=== PATIENT | female | born 1995 | race Caucasian/White ===

== ENCOUNTER 2022-06-05 12:24 | Emergency (ER) | payer SELFPAY ==
--- NOTE | ~2022-06-05 | XR_ITS ---
EXAMINATION: XR lumbar spine min 4V DATE: 06/05/2022 15:46 INDICATION: Left back pain. TECHNIQUE: 5 views of lumbar spine were obtained. COMPARISON: None. FINDINGS: There is 10 degrees levoscoliosis of lumbar spine. Vertebral body heights are normal. Inter vertebral disc heights are normal. The facet joints are unremarkable. IMPRESSION: 1. Lumbar levoscoliosis. Reviewed, dictated and finalized at location A. IMPRESSION: 1. Lumbar levoscoliosis.
[2022-06-05 12:59] VITALS: BP 177/100; PULSE 85; RESP 18; TEMP 36.6; O2SAT 100
[2022-06-05 14:12] LABS: Appearance Urine Clear (Clear); Bilirubin Urine Negative (Negative); Blood Urine 2+ (Negative); Color Urine Yellow (Yellow); Glucose Urine UA Negative (Negative); Ketones Urine Negative (Negative); Leukocyte Esterase Ur Trace LEU/UL (Negative); Nitrate Urine Negative (Negative); Protein Urine 2+ mg/dL (Negative); Specific Grav Ur 1.025 (1.001-1.035); Urobilinogen Urine 0.2 mg/dL (<2.0); pH Urine 6.5 (5.0-9.0)
[2022-06-05 14:18] LABS: Bacteria Urine Trace /hpf; Mucus Urine Rare /lpf; Squamous Epithelial Cell Urine Few /hpf (Few)
[2022-06-05 14:21] LABS: Add Urine Microscopic? YES
[2022-06-05 15:47] VITALS: PULSE 81; RESP 14; O2SAT 99
[2022-06-05 15:50] VITALS: BP 168/118
--- NOTE | 2022-06-05 16:40 | ED.BACK ---
HPI - Back Pain/Injury General Chief Complaint: Back Pain/Injury Stated Complaint: back pain x 2 weeks Time Seen by Provider: 06/05/22 15:12 Source: patient Mode of arrival: ambulatory Limitations: no limitations History of Present Illness HPI Narrative: 26-year-old otherwise healthy here with complaints of low back pain for 2 weeks. She denies any trauma. No history of bladder or bowel incontinence. She states that she has a constant pain. MD elicited complaint: back pain Onset (ago): week(s) (2) Timing: constant Severity: moderate Similar Symptoms Previously: No Quality: aching Location: lumbar spine Radiation: none Exacerbating factors: none Associated symptoms: denies other symptoms Related Data Allergies Allergy/AdvReac Type Severity Reaction Status Date / Time NSAIDS (Non-Steroidal AdvReac Unknown has Verified 06/05/22 15:48 Anti-Inflamma polycystic kidneys, told not to take Review of Systems Review of Systems: All systems reviewed & are unremarkable except as noted in HPI and below Constitutional: Constitutional: Reports no additional constitutional complaints Eyes: Eyes: Reports no additional eye complaints ENT: Reports system reviewed and no additional complaints, except as documented Cardiovascular: Cardiovascular: Reports no additional cardiovascular complaints Respiratory: Respiratory: Reports no additional respiratory complaints Gastrointestinal: Gastrointestinal: Reports no additional gastrointestinal complaints Musculoskeletal: Musculoskeletal: Reports as per HPI Neurologic: Reports system reviewed and no additional complaints, except as documented Exam Narrative: GENERAL: Well-appearing, well-nourished, and in no acute distress. HEAD: Normocephalic, atraumatic. EYES: PERRLA and EOMI NECK: Supple. CHEST: Clear to auscultation. No respiratory distress. HEART: Regular rate and rhythm. No murmur heard. Normal peripheral pulses. ABDOMEN: Soft, nontender, nondistended, normal active bowel sounds. SLR negative on both sides EXTREMITIES: Normal range of motion. No edema. SKIN: Warm, dry, no rash. NEURO: No focal deficits. Alert and oriented x3. PSYCH: Normal mood and affect. Course Vital Signs Vital signs: Vital Signs Temperature 36.6 C 06/05/22 12:59 Pulse Rate 85 06/05/22 12:59 Respiratory Rate 18 06/05/22 12:59 Blood Pressure 177/100 H 06/05/22 12:59 Pulse Oximetry 100 06/05/22 12:59 Oxygen Delivery Room Air 06/05/22 12:59 Temperature 36.6 C 06/05/22 12:59 Pulse Rate 81 06/05/22 15:47 Respiratory Rate 14 06/05/22 15:47 Blood Pressure 168/118 H 06/05/22 15:50 Pulse Oximetry 99 06/05/22 15:47 Oxygen Delivery Room Air 06/05/22 12:59 MDM - Back Pain/Injury MDM Narrative Medical decision making narrative: DJD, muscle strain Lab Data Labs: Lab Results 06/05/22 Range/Units 13:51 Urine Color Yellow (Yellow) Urine Appearance Clear (Clear) Urine pH 6.5 (5.0-9.0) Ur Specific [place] 1.025 (1.001-1.035) Urine Protein 2+ H (Negative) mg/dL Urine Glucose (UA) Negative (Negative) mg/dL Urine Ketones Negative (Negative) mg/dL Ur Blood (Man) 2+ H (Negative) Urine Nitrate Negative (Negative) Urine Bilirubin Negative (Negative) Urine Urobilinogen 0.2 (<2.0) mg/dL Leukocyte Esterase Rfl Trace H (Negative) VANDANA/UL Urine RBC 11-20 H (0-2) /hpf Urine WBC 4-6 H /hpf Ur Squamous Epith Cells Few (Few) /hpf Urine Bacteria Trace /hpf Urine Mucus Rare /lpf UCG Bedside Result Negative Reference Range: Negative Discharge Plan Discharge Clinical Impression: Strain of lumbar region Patient Disposition: Home, Self-Care Condition: Stable Instructions: Antibiotic Form Additional Instructions: Take pain medication as prescribed follow-up with your doctor Prescriptions: New tramadol [Ul
== END 2022-06-05 17:10 | disposition home or self-care (01) ==
PROVIDERS: Emergency Provider Family Medicine
DX: S39.012A Strain of muscle, fascia and tendon of lower back, initial encounter (principal); X58.XXXA Exposure to other specified factors, initial encounter
CPT/HCPCS: 72110; 81001; 81025; 99283

== ENCOUNTER 2023-02-11 15:29 | Emergency (ER) | payer OTHER, SELFPAY ==
[2023-02-11 15:54] VITALS: BP 156/90; PULSE 82; RESP 15; TEMP 36.8; O2SAT 100
--- NOTE | 2023-02-11 15:57 | ED.URI ---
HPI - URI/Sore Throat General Chief Complaint: Upper Respiratory Infection Stated Complaint: cough Time Seen by Provider: 02/11/23 15:50 History of Present Illness HPI Narrative: 27-year-old female with no medical problems presents to the emergency room for evaluation of a productive cough for 8 days. Cough is associated with PND, sinus congestion, sneezing, rhinorrhea. Patient recently found out that she is 8 weeks . Has been taking Tylenol and Zyrtec for her cough with no improvement of her symptoms. Denies any shortness of breath, wheezing, fever or chest pain. Related Data Allergies Allergy/AdvReac Type Severity Reaction Status Date / Time NSAIDS (Non-Steroidal AdvReac Unknown has Verified 02/11/23 15:57 Anti-Inflamma polycystic kidneys, told not to take Review of Systems Review of Systems: CONSTITUTIONAL: Denies fever, chills, or sweats. EYES: Denies visual changes, redness, or discharge. ENT: Denies rhinorrhea, congestion, sore throat, or otalgia. CARDIOVASCULAR: Denies chest pain, palpitations, or edema. RESPIRATORY: Reports cough GASTROINTESTINAL: Denies abdominal pain, nausea, vomiting, or diarrhea. GENITOURINARY: Denies dysuria or hematuria. SKIN: Denies rash or itching. MUSCULOSKELETAL: Denies back pain, joint pain, or myalgia. NEUROLOGIC: Denies headache, numbness, dizziness, or weakness. PSYCHIATRIC: Denies anxiety or depression. Exam Narrative: GENERAL: Well-appearing, well-nourished, no physical limitations, and in no acute distress. HEAD: Normocephalic, atraumatic. EYES: Conjunctivae normal, PERRLA and EOMI. ENT: External nose normal, Nares clear, no rhinorrhea or epistaxis. Mucous membranes moist. Oropharynx without tonsillar hypertrophy exudate or other lesions. External ears normal, bilateral TMs normal bilaterally NECK: Supple. No adenopathy or masses. CHEST: Clear to auscultation. No respiratory distress. No wheezes rales or rhonchi. HEART: Regular rate and rhythm. No murmur heard. Normal peripheral pulses. EXTREMITIES: Normal range of motion. No edema. No clubbing or cyanosis SKIN: Warm, dry, no rash. No noted wounds NEURO: No focal deficits. Alert and oriented x3. MAEW. CN's II-XI intact bilaterally, normal gait PSYCH: Cooperative. Normal mood and affect. Course Vital Signs Vital signs: Vital Signs Temperature 36.8 C 02/11/23 15:54 Pulse Rate 82 02/11/23 15:54 Respiratory Rate 15 02/11/23 15:54 Blood Pressure 156/90 H 02/11/23 15:54 Pulse Oximetry 100 02/11/23 15:54 Oxygen Delivery Room Air 02/11/23 15:54 Temperature 36.8 C 02/11/23 15:54 Pulse Rate 82 02/11/23 15:54 Respiratory Rate 15 02/11/23 15:54 Blood Pressure 156/90 H 02/11/23 15:54 Pulse Oximetry 100 02/11/23 15:54 Oxygen Delivery Room Air 02/11/23 15:54 MDM - URI/Sore Throat Lab Data Labs: Lab Results 02/11/23 Range/Units 15:53 Influenza A (RT-PCR) Negative (Negative) Influenza B (RT-PCR) Negative (Negative) RSV (RT-PCR) Negative (Negative) SARS-CoV-2 RNA (RT-PCR) Negative (Negative) Discharge Plan Discharge Clinical Impression: Upper respiratory infection, Cough Patient Disposition: Home, Self-Care Condition: Stable Instructions: Antibiotic Form, Acute Cough (ED) Prescriptions: No Action tramadol [Ultram] 50 mg tablet 50 mg PO Q6H PRN (Reason: pain) Qty: 20 0RF Follow-up/Referrals: PHYSICIAN,APPLICATIONS TESTER [Non-Staff] - Time of Disposition: 16:42
[2023-02-11 16:32] LABS: Influenza A QL RT-PCR Negative (Negative); Influenza B QL RT-PCR Negative (Negative); RSV RNA, RT-PCR Negative (Negative); SARS-CoV-2 RNA PCR Negative (Negative)
[2023-02-11 17:03] VITALS: BP 159/96; PULSE 88; RESP 17; O2SAT 100
== END 2023-02-11 17:08 | disposition home or self-care (01) ==
PROVIDERS: Emergency Medicine; Emergency Provider Nurse Practitioner Family
DX: J06.9 Acute upper respiratory infection, unspecified (principal); Z20.822 Contact with and (suspected) exposure to COVID-19
CPT/HCPCS: 87637; 99281; 99282; 99283

== ENCOUNTER → 2023-02-20 11:08 | Outpatient (CLI) | payer OTHER, SELFPAY ==
--- NOTE | ~2023-02-20 | US_ITS ---
Pelvic ultrasound. Clinical History: First trimester , amenorrhea Technique: Realtime transabdominal and transvaginal scanning of the pelvis was performed. Color flow Doppler and Doppler spectral analysis were performed. Findings: The uterus is anteverted, and contains an intrauterine gestation. Left-sided intraforaminal fibroid measures 4.6 cm in diameter. heart rate is 173 bpm. [place]-rump length of 2.4 cm corres ponds to an estimated gestational age of 9 weeks 1 day. The right ovary is not visualized. No significant right ovarian or adnexal mass is seen. The left ovary measures 3.8 x 2.0 x 2.8 cm. No significant left ovarian or adnexal mass is seen. There is no evidence of free fluid in the cul de sac. Impression: Live intrauterine gestation with estimated gestational age of 9 weeks 1 day. heart rate is 173 bpm. Sonographic JONATHAN is 09/24/2023. 4.6 cm uterine fibroid, as above. Reviewed, dictated and finalized at location . Impression: Live intrauterine gestation with estimated gestational age of 9 weeks 1 day. Fe manjit heart rate is 173 bpm. Sonographic JONATHAN is 09/24/2023. 4.6 cm uterine fibroid, as above.
== END ==
PROVIDERS: PCP Obstetrics & Gynecology; Visit Provider Obstetrics & Gynecology
DX: N91.1 Secondary amenorrhea (principal); Z34.91 Encounter for supervision of normal pregnancy, unspecified, first trimester; Z3A.09 9 weeks gestation of pregnancy; D25.9 Leiomyoma of uterus, unspecified
CPT/HCPCS: 76801; 76817

== ENCOUNTER 2025-03-06 03:20 | Observation (INO) | payer OTHER, SELFPAY ==
--- NOTE | ~2025-03-06 | US_ITS ---
EXAMINATION: US abdomen limited DATE: 03/06/2025 07:57 INDICATION: Right upper quadrant abdominal pain TECHNIQUE: Multiple grayscale and Doppler ultrasound images of the abdomen were obtained. COMPARISON: CT dated 03/06/2025 FINDINGS: The pancreatic head and body are normal in appearance. The pancreatic tail is not visualized. Liver has normal echogenicity and contour, with a smooth surface. One similar anechoic hepatic cyst.. No in trahepatic biliary duct dilation suspected. Portal venous flow was seen in the hepatopetal, normal di rection and has normal Doppler waveform. Numerous echogenic and shadowing gallstones in the dependent neck of the gallbladder. Minimal gallbladder wall thickening. Sonographic Nuno sign was reported a s positive by the continuous loft operator.Common bile duct measures 5-6 mm in maximal diameter which is normal. T he visualized proximal inferior vena cava is normal. The visualized mid abdominal aorta appears kim l measuring 1.9 cm in maximal diameter. IMPRESSION: 1. Cholelithiasis with likely acute cholecystitis. Reviewed, dictated and finalized at location A.
--- NOTE | ~2025-03-06 | CT_ITS ---
EXAMINATION: CT abdomen pelvis w con DATE: 03/06/2025 06:24 INDICATION: Right-sided abdominal pain, nausea and vomiting TECHNIQUE: Computed tomography (CT) of the abdomen and pelvis was performed with 100 mL Omnipaque-350 intravenous contrast. Automated exposure control and iterative reconstruction technique were employe d. The dose-length product was 1318.60 mGy-cm. COMPARISON: None FINDINGS: Mild atelectasis due to the dependent left lung base. Heart size is normal. No pericardial or pleural effusion. There are a few hepatic cysts measuring up to 1.4 cm in maximal diameter and numerous bila teral renal cysts measuring up to 3.2 cm in maximal diameter on the right consistent with polycystic kidney disease. Spleen, pancreas and bilateral adrenal glands are normal. There are gallstones in the dependent neck of the gallbladder. There is subtle edematous-appearing gallbladder wall thickening s uspicious for early acute cholecystitis. Bowels including the appendix are normal. Bladder, uterus an d left adnexa are unremarkable. There is a 4.9 cm right adnexal cyst. No free intraperitoneal gas or fluid. No pathologically enlarged abdominal or pelvic lymphadenopathy. Mild S-shaped thoracolumbar sc oliosis with mild spondylosis. IMPRESSION: 1. Cholelithiasis with likely early acute cholecystitis. 2. 4.9 cm right adnexal cyst. 3. Numerous bilateral renal cysts and a few hepatic cysts consistent with autosomal dominant polycyst ic kidney disease. Reviewed, dictated and finalized at location A. IMPRESSION: 1. Cholelithiasis with likely early acute cholecystitis. 2. 4.9 cm right adnexal cyst. 3. Numerous bilateral renal cysts and a few hepatic cysts consistent with autos omal dominant polycystic kidney disease.
[2025-03-06 03:21] VITALS: BP 211/110; PULSE 91; RESP 18; TEMP 36.6; O2SAT 100
--- OUTSIDE RECORDS SUMMARY | 2025-03-06 03:23 | XMS_ITS | Data Portability ---
Author Organization [facility] JUNEHenry Address [address] [place] [address] Assessment No assessment recorded. Plan of Treatment Reminders Order Date Submit Date Provider Last Modified By Organization Details Last Modified Time Details Appointments None recorded. Lab SARS CoV 2 RNA (COVID-19) , QL, technical specialist cytogenetics-PCR, respirator y specimen - [place] , 2019 020 [facility] (Lab), [address] [place], [address], 0 15:45:55 pap, IG + HPV, cervical 2015 016 [facility], [address] [place] [address], [address], [place], [address], 6 20:08:41 bacterial vaginosis + vaginitis panel, vaginal 2015 016 [facility], [address] [place] [address], [address], [place], [address], 6 20:07:48 HSV (1+2) DNA, qual, PCR, unspecifie d specimen 2015 016 [facility], [address] [place] [address], [address], [place], [address], 6 20:07:49 urinalysis , dipstick 2015 016 [email or web address] In-Office Order, Internal Use Only DO Not Attach Compendium DO Not Attach Compendium, Do Not Delete/merge, [id number] 6 17:46:15 test, urine 2015 016 [id number] In-Office Order, Internal Use Only DO Not Attach Compendium DO Not Attach Compendium, Do Not Delete/merge, [id number] 04:29:[address] referral - History of polycystic kidneys, Can she use oral contracept edward pills? 2015 016 JOHN Knutson MD (Nephrology, [address], [address], [place], [address], 10:25:48 Procedures None recorded. Surgeries None recorded. Imaging None recorded. Medication Orders None recorded. Patient TargetsNo targets recorded. Patient Instructions Encounter Date Encounter Id Patient Instructions Last Modified By Organization Details Last Modified Time 08/01/2016 [id number] painful menstrua l cramps: care instructions [email or web address] Not available 08/01/2016 17:04:32 02/20/2020 [id number] Reviewed the following recommendations: -Stay home and separate from others as much as possible. -Monitor your symptoms and seek medical attention for trouble breathing, persistent chest pain, confusion, or bluish lips or face. -Wear a mask if you must be around other people. -Wash your hands often for 20 seconds with soap and water and clean high-touch surfaces daily -You may discontinue home isolation if your symptoms are improving, it has been 7 days since symptoms started, and you have been fever free for at least 3 days. 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 Referring Physician: Yung Love, [employer] AND LOAN COLLECTIONS SUPERVISOR, Encounter Date: 08/01/2016 Results Created Date Observation Date Name Description Value Unit Range Abnormal Flag Note LastModifiedBy Organization Detail LastModifiedTime 08/12/20 16 08/12/2016 pregn milo test, urine HCG negati ve Not Available In-Office Order Internal Use Only DO Not Attach Compendium DO Not Attach Compendium, Do Not Delete/merge, [id number] 08/12/2016 16:54:29 08/01/20 16 08/01/2016 urina lysis , dipst ick Leukocytes Small Not Available In-Offi ce Order Internal Use Only DO Not Attach Compendium DO Not Attach Compendium, Do Not Delete/merge, [id number] 08/01/2016 16:56:39 08/01/20 16 08/01/2016 urina lysis , dipst ick Nitrite negati ve Not Available In-Office Order Internal Use Only DO Not Attach Compendium DO Not Attach Compendium, Do Not Delete/merge, [id number] 08/01/2016 16:56:39 08/01/20 16 08/01/2016 urina lysis , dipst ick Urobilinogen 1 Not Available In-Of fice Order Internal Use Only DO Not Attach Compendium DO Not Attach Compendium, Do Not Delete/merge, [id number] 08/01/2016 16:56:39 08/01/20 16 08/01/2016 urina lysis , dipst ick Protein 100 Not Available In-Office Order Internal Use Only DO Not Attach Compendium DO Not Attach Compendium, Do Not Delete/merge, [id number] 08/01/2016 16:56:39 08/01/20 16 08/01/2016 urina lysis , dipst ick pH 6.5 Not Available In-Office Order Internal Use Only DO Not Attach Compendium DO Not Attach Compendium, Do Not Delete/merge, [id number] 08/01/2016 16:56:39 08/01/20 16 08/01/2016 urina lysis , dipst ick Blood Modera te Not Available In-Office Order Internal Use Only DO Not Attach Compendium DO Not Attach Compendium, Do Not Delete/merge, [id number] 08/01/2016 16:56:39 08/01/20 16 08/01/2016 urina lysis , dipst ick Specific Gabriels 1.030 Not Available In-Off ice Order Internal Use Only DO Not Attach Compendium DO Not Attach Compendium, Do Not Delete/merge, [id number] 08/01/2016 16:56:39 08/01/20 16 08/01/2016 urina lysis , dipst ick Ketone Trace Not Available In-Office Order Internal Use Only DO Not Attach Compendium DO Not Attach Compendium, Do Not Delete/merge, [id number] 08/01/2016 16:56:39 08/01/20 16 08/01/2016 urina lysis , dipst ick Bilirubin Negati ve Not Available In-Office Order Internal Use Only DO Not Attach Compendium DO Not Attach Compendium, Do Not Delete/merge, [id number] 08/01/2016 16:56:39 08/01/20 16 08/01/2016 urina lysis , dipst ick Glucose Negati ve Not Available In-Office Order Internal Use Only DO Not Attach Compendium DO Not Attach Compendium, Do Not Delete/merge, [id number] 08/01/2016 16:56:39 08/01/20 16 08/01/2016 urina lysis , dipst ick Appearance Clear Not Available In-Offi ce Order Internal Use Only DO Not Attach Compendium DO Not Attach Compendium, Do Not Delete/merge, [id number] 08/01/2016 16:56:39 08/01/20 16 08/01/2016 urina lysis , dipst ick Color Yellow Not Available In-Office Order Internal Use Only DO Not Attach Compendium DO Not Attach Compendium, Do Not Delete/merge, [id number] 08/01/2016 16:56:39 08/01/20 16 08/05/2016 pap, IG + HPV, cervi jason diagnosis: COMMEN T NEGAT EDWARD FOR INTRA EPITH ELIAL LESIO N AND MALIG CHEY . CELLU LAR BENZ ES ASSOC IATED WITH INFLA MMATI ON ARE PRESE NT. TRICH OMONA S VAGIN TAMIR IS PRESE NT. THIS SPECI MEN WAS RESCR EENED PART OF OUR QUALI TY CONTR OL PROGR AM. Not Available [facility] ([facility]) [address], [place], [address], 08/05/2016 20:08:41 08/01/20 16 08/05/2016 pap, IG + HPV, cervi jason specimen adequacy: COMMEN T SATIS FACTO RY FOR EVALU ATION . ENDOC ERVIC AL AND/O R SQUAM OUS METAP LASTI C CELLS (ENDO CERVI JASON COMPO NENT) ARE PRESE NT. Not Available [facility] ([facility]) [address] [facility], [place], [address], 08/05/2016 20:08:41 08/01/20 16 08/05/2016 pap, IG + HPV, cervi jason clinician provided ICD10: CHATA Lawler Z01.4 19 Not Available [facility] ([facility]) [address] [facility], [place], [address], 08/05/2016 20:08:41 08/01/20 16 08/05/2016 pap, IG + HPV, cervi jason performed by: CHATA BENNETT , CYTOT ECHNO LOGIS T (ASCP ) Not Available [facility] ([facility]) [address] [facility], [place], [address], 08/05/2016 20:08:41 08/01/20 16 08/05/2016 pap, IG + HPV, cervi jason QC reviewed by: CHATA HOFFMANN, CYTOT ECHNO LOGIS T (ASCP ) Not Available [facility] ([facility]) [address] [facility], [place], [address], 08/05/2016 20:08:41 08/01/20 16 08/05/2016 pap, IG + HPV, cervi jason . . Not Available [facility] ([facility]) [address] [place], [address], 08/05/2016 20:08:41 08/01/20 16 08/05/2016 pap, IG + HPV, cervi jason pathologist provided ICD10: CHATA Lawler R87.5 Not Available [facility] ([facility]) [address] [place], [address], 08/05/2016 20:08:41 08/01/20 16 08/05/2016 pap, IG + HPV, cervi jason note: CHATA Lawler THE PAP SMEAR IS A SCREE SHAYY TEST KACI OLIVEROS TO AID IN THE DETEC TION OF BLANQUITA LIGNA NT AND MALIG NANT CONDI TIONS OF THE UTERI NE CERVI X. IT IS NOT A DIAGN OSTIC PROCE DURE AND SHOUL D NOT BE USED THE SOLE MEANS OF DETEC TING CERVI JASON CANCE R. BOTH FALSE -POSI TIVE AND FALSE -NEGA TIVE REPOR TS DO OCCUR . Not Available [facility] ([facility]) [address] [place], [address], 08/05/2016 20:08:41 08/01/20 16 08/05/2016 pap, IG + HPV, cervi jason test methodology: COMMEN T THIS LIQUI D BASED THINP REP(R ) PAP TEST WAS SCREE ASAD WITH THE USE OF AN IMAGE GUIDE Kamar López Not Available [facility] ([facility]) [address] [place], [address], 08/05/2016 20:08:41 08/01/20 16 08/05/2016 pap, IG + HPV, cervi jason HPV aptima POSITI VE negati ve abnormal THIS TEST DETEC TS FOURT EEN HIGH- RISK HPV TYPES (16/1 8/31/ 33/35 /39/4 5/ 51/52 /56/5 8/59/ 66/68 ) WITHO UT DIFFE RENTI ATION . Not Available [facility] ([facility]) [address] [place], [address], 08/05/2016 20:08:41 08/01/20 16 08/04/2016 bacte rial vagin osis + vagin itis panel , vagin al atopobium vaginae MODERA TE - 1 score Not Available [facility] ([facility]) [address] [place], [address], 08/06/2016 20:07:48 08/01/20 16 08/04/2016 bacte rial vagin osis + vagin itis panel , vagin al bvab 2 LOW - 0 score Not Available [facility] ([facility]) [address] [place], [address], 08/06/2016 20:07:48 08/01/20 16 08/04/2016 bacte rial vagin osis + vagin itis panel , vagin al megasphaera 1 LOW - 0 score CALCU LATE TOTAL SCORE BY MIRIAM Tinsley THE 3 INDIV IDUAL BACTE RIAL VAGIN OSIS (BV) MARKE R SCORE S TOGET HER. TOTAL SCORE IS INTER PRETE D FOLLO WS: TOTAL SCORE 0-1: INDIC ATES THE ABSEN CE OF BV. TOTAL SCORE 2: INDET ERMIN ATE FOR BV. ADDIT IONAL CLINI JASON DATA SHOUL D BE EVALU ATED TO ESTAB PONCE A DIAGN OSIS. TOTAL SCORE 3-6: INDIC ATES THE PRESE NCE OF BV. THIS TEST WAS DEVEL OPED AND ITS PERFO RMANC E GLEN CTERI STICS DETER MINED BY [employer]. IT HAS NOT BEEN CLEAR ED OR APPRO CODY BY THE FOOD AND DRUG ADMIN ISTRA TION. THE FDA HAS DETER MINED THAT SUCH CLEAR ANCE OR APPRO AUSTEN IS NOT NECES CHERYL. Not Available [facility] ([facility]) [address] [place], [address], 08/06/2016 20:07:48 08/01/20 16 08/04/2016 bacte rial vagin osis + vagin itis panel , vagin al conrad albicans, JANEEN NEGATI VE negati ve Not Available [facility] ([facility]) [address] [place], [address], 08/06/2016 20:07:48 08/01/20 16 08/04/2016 bacte rial vagin osis + vagin itis panel , vagin al conrad glabrata, JANEEN NEGATI VE negati ve THIS TEST WAS DEVEL OPED AND ITS PERFO RMANC E GLEN CTERI STICS DETER MINED BY [employer]. IT HAS NOT BEEN CLEAR ED OR APPRO CODY BY THE FOOD AND DRUG ADMIN ISTRA TION. THE FDA HAS DETER MINED THAT SUCH CLEAR ANCE OR APPRO AUSTEN IS NOT NECES CHERYL. Not Available [facility] ([facility]) [address] [place], [address], 08/06/2016 20:07:48 08/01/20 16 08/04/2016 bacte rial vagin osis + vagin itis panel , vagin al trich vag by JANEEN POSITI VE negati ve abnormal Not Available [facility] ([facility]) [address] [facility], [place], [address], 08/06/2016 20:07:48 08/01/20 16 08/04/2016 bacte rial vagin osis + vagin itis panel , vagin al chlamydia trachomatis, JANEEN NEGATI VE negati ve Not Available [facility] ([facility]) [address] [place], [address], 08/06/2016 20:07:48 08/01/20 16 08/04/2016 bacte rial vagin osis + vagin itis panel , vagin al neisseria gonorrhoeae, JANEEN NEGATI VE negati ve Not Available [facility] ([facility]) [address] [place], [address], 08/06/2016 20:07:48 08/01/20 16 08/04/2016 HSV (1+2) DNA, qual, PCR, unspe cifie d speci men hsv 1 JANEEN NEGATI VE negati ve Not Available [facility] ([facility]) [address] [place], [address], 08/06/2016 20:07:49 08/01/20 16 08/06/2016 HSV (1+2) DNA, qual, PCR, unspe cifie d speci men hsv 2 JANEEN NEGATI VE negati ve Not Available [facility] ([facility]) [address] [place], [address], 08/06/2016 20:07:49 02/20/20 20 02/20/2020 SARS CoV 2 RNA (COVI D-19) , QL, technical specialist cytogenetics-P CR, respi rator y speci men sars - cov - 2 PCR NEGATI VE mL Not Available [facility] (Lab) [address] [facility], [place], [address], 02/22/2020 15:45:55 02/20/20 20 02/20/2020 SARS CoV 2 RNA (COVI D-19) , QL, technical specialist cytogenetics-P CR, respi rator y speci men covidcom1 This assay is desig asad to detec t the RdRp and N genes of SARS- CoV-2 using nucle ic acid ampli ficat ion. A negat edward resul t does not precl ude the possi bilit y of 2019- nCoV infec tion since the adequ acy of sampl e colle ction and/o r low viral burde n may resul t in the prese nce of viral nucle ic acids level s below the elena tical sensi tivit y of this test metho d. Not Available [facility] (Lab) [address] [facility], [place], [address], 02/22/2020 15:45:55 02/20/20 20 02/20/2020 SARS CoV 2 RNA (COVI D-19) , QL, technical specialist cytogenetics-P CR, respi rator y speci men covidcom2 Posit edward resul ts are indic ative of the prese nce of SARS- CoV-2 RNA and do not rule out bacte rial infec tion or co-in fecti on with other virus es. Not Available [facility] (Lab) [address] [facility], [place], [address], 02/22/2020 15:45:55 02/20/20 20 02/20/2020 SARS CoV 2 RNA (COVI D-19) , QL, technical specialist cytogenetics-P CR, respi rator y speci men covidcom3 Test resul ts shoul d be used along with other clini jason obser vatio ns, patie nt histo ry, epide miolo gical infor matio n and labor atory data in sole tinsley the diagn osis. Not Available [facility] (Lab) [address] [facility], [place], [address], 02/22/2020 15:45:55 02/20/20 20 02/20/2020 SARS CoV 2 RNA (COVI D-19) , QL, technical specialist cytogenetics-P CR, respi rator y speci men covidcom4 This test has recei cody FDA Emerg ency Use Autho rizat ion and has been verif ied by [facility] . This test is only autho rized for the durat ion of the decla ratio n and the circu mstan emanuel that exist to justi fy the autho rizat ion of the emerg ency use of in vitro diagn ostic tests for the detec tion of SARS- CoV-2 virus and/o r diagn osis of COVID -19 infec tion under secti on 564 (b) (1) of the Act. 11 U.S.C . 360bb b-3 (b) (1), unles s the autho rizat ion is termi nated or revok ed soone r. Not Available [facility] (Lab) [address] [place], [address], 02/22/2020 15:45:55 02/20/20 20 02/20/2020 SARS CoV 2 RNA (COVI D-19) , QL, technical specialist cytogenetics-P CR, respi rator y speci men covidcom5 [facility] is certi fied under CLIA- 88 as quali fied to perfo rm high compl exity testi ng. This testi ng was perfo rmed in the [facility] [place] [address] (CLIA Licen se #[id number], CAP #[id number], AU-ID #[id number]). Not Available [facility] (Lab) [address] [place], [address], 02/22/2020 15:45:55 02/20/20 20 02/20/2020 SARS CoV 2 RNA (COVI D-19) , QL, technical specialist cytogenetics-P CR, respi rator y speci men covidcom6 Facts heet for healt hcare provi ders: https ://ww w.fda .gov/ media /1362 56/do wnloa d Facts heet for veda nts: https ://ww w.fda .gov/ media /1365 57/do wnloa d Not Available [facility] ([facility]) [address], [place], [address], 02/22/2020 15:45:55 Result Notes None recorded. Problems Name Problem SNOMED Code Status Onset Date Resolution Date Notes Provider Name and Address Organization Details Recorded Time Dysmenorrhea 798759908 Active Yung Ivan kearney [facility] 6 17:02:03 Problem Notes None recorded. Procedures Surgical History Date Name Laterality Status Provider Name and Address Organization Details Recorded Time 6 Date of Last Pap Smear completed Marycruz Delgado MA [facility] 08/01/2016 15:58:23 5 Dilation and Curettage completed Marycruz Delgado MA [facility] 08/01/2016 15:59:08 Imaging Results None recorded. Procedure Notes None recorded. Medical Equipment None Reported. Medications Name Sig Start Date Stop Date Status Note LastModified by Organization Details LastModified Time azithromycin 250 mg tablet active Not Available Not Availabl e Not Available hydrocodone 5 mg-acetaminophe n 325 mg tablet active Not Available Not Availa ble Not Available metronidazole 500 mg tablet Take 4 tablets now 2015 active Not Available Not Available Not Avai lable sulfamethoxazol e 800 mg-trimethoprim 160 mg tablet active Not Available Not Availabl e Not Available oxycodone-aceta minophen 5 mg-325 mg tablet active Not Available Not Available Not Available montelukast 10 mg tablet active Not Available Not Available No t Available fluticasone propionate 50 mcg/actuation nasal spray,suspensio n active Not Available Not Available Not Available Vitamins Plus Low Iron 27 mg iron-1 mg tablet active Not Available Not Available Not Available Vitals Date Recorded Body mass index (BMI) Body weight Body height Systolic blood pressure Diastolic blood pressure Provider Name and Address Organization Details Last Updated DateTime 08/01/2016 39.4 kg/m2 673050.5 3828 g 167.64 cm 118 mm[Hg] 90 mm[Hg] Marycruz Delgado MA [facility] 6 16:03:45 Social History Question Answer Notes LastModified by Organizat ion Details LastModified Time Tobacco Smoking Status Never Smoker Marycruz Delgado MA [facility], [place] - [facility] 08/01/2016 16:01:50 Do You Have An Advance Directive? No Information not available 08/01/2016 Is Blood Transfusion Acceptable In An Emergency? Yes Information not available 08/01/2016 What Is Your Level Of Caffeine Consumption? Moderate Information not available 08/01/2016 How Much Tobacco Do You Chew? None Information not available 08/01/2016 What Type Of Diet Are You Following? REGULAR Information not available 08/01/2016 Which Illicit Or Recreational Drugs Have You Used? None Information not available 08/01/2016 Education 12 Information no t available 08/01/2016 Live Alone Or With Others? With Others Information not available 08/01/2016 How Many Children Do You Have? 0 Information not available 08/01/2016 Performs Monthly Self-breast Exam? No Information no t available 08/01/2016 Do You Use Protection During Sex? No Information not available 08/01/2016 What Is Your Relationship Status? Single Information not available 08/01/2016 Seat Belts Used Routinely Yes Information not available 08/01/2016 Are You Sexually Active? Yes Information not available 08/01/2016 General Stress Level Low Information not available 08/01/2016 Do You Use Sunscreen Routinely? No Information not available 08/01/2016 Sex: Unknown Functional Status Question Answer Note LastModified by Organizat ion Details LastModified Time What is your level of alcohol consumption? Occasional Information not available 08/01/2016 Are you currently employed? 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 Occasional Information not available 08/01/2016 Mental Status None recorded. Family History Nothing Reported. Medical History Condition Response Other N High Blood Pressure N Breast Cancer N Lung Disease N Depression N Blood Clots N Breast Problem N Anesthesia Complications N Headaches/Migraines N Anxiety Disorder N Muscle, Joint, or Bone Problems N Polyps N Infertility N Acid Reflux (GERD) N Cancer N Endometriosis N High Cholesterol N Liver Disease N Kidney or Bladder Problems Y Thyroid Problems N GI Problems N Acne N Eating Disorder N Anemia N Ovarian Cancer N Diabetes N Blood Transfusions N Seizures/Epilepsy N Abuse/Domestic Violence N Asthma N Hepatitis N Heart Disease N Pre-Eclampsia N Osteoporosis N Gynecological History Statement/Question Response Abnormal Pap N Flow Moderate STIs/STDs N HPV Vaccine Y Duration of Flow (days) 4 Age at Menarche 8 Current Control Method None Frequency of Cycle (Q days) 28 Sexually Active? Y Menses Monthly Y Date of Last Pap Smear 08/01/2016 Sexual Problems? N LMP Approximate Desired Control Method Unknown Obstetrics History GPAL:G 1 P 0 0 1 0 Type Value Multiple Births 0 Full Term 0 Induced 0 Spontaneous 1 Premature 0 Living 0 Ectopics 0 Total 1 Past Encounters Encounter ID Performer Location Encounter Start Date Encounter Closed Date Diagnosis/Indication Diagnosis SNOMED-CT Code Diagnosis ICD10 Code Diagnosis Note [id number] Yung Love MD [facility] (CREDIT AND LOAN COLLECTIONS SUPERVISOR) [address] [place] [phone] 08/01/2016 15:29:50 08/04/2016 10:03:24 Gynecologic examination 42097395 Z01.419 Dysmenorrhea 205878024 N 94.6 Discussed possible endometrio sis as patient has experience d painful periods since age 8. Considered going on continuous OCP's but concerned about history of polycystic renal disease. Will refer to Nephrologi st for answer to this question as to potential contraindi cations. [id number] MD Bronwyn Solis [address] [place] [address] 02/20/2020 13:22:57 02/21/2020 10:38:44 Exposure to SARS-CoV-2 959296113 Z20.828 Health Concerns Section Related Observation LastModified by Organization Detai ls LastModified Time None Recorded Concern Status LastModified by Organization Details LastModified Time None Recorded Advance Directives Directive N: Payers Encounter Date Sequence Insurance Name Policy Number Policy Bianchi Covered Member ID Bianchi Member ID Guarantor Name 08/01/2016 1 [facility] (MEDICAID HMO) [id number] Jenelle Plummer [id number] Jenelle Plummer 02/20/2020 1 [facility] Jenelle Plummer [id number] Jenelle Plummer Notes Date Note Type Note Provider Name and Address Organization Details Recorded Time 08/01/2016 text/html Presenting for a nnual check up with complaint of persistent dysmennorhea. Marycruz Delgado MA [facility], [facility] 08/12/2016 16:55:11 02/20/2020 text/html COVID ScreeningReported bypatient.Onset/Durati on of fever:no fever Associated Symptoms:no cough; no shortness of breathCOVID-19 SymptomsReported bypatient.COVID-19 Signs and Symptomscough resolved; fever resolved; shortness of breath resolved Contacts and Exposureclose contact with a confirmed or suspected case of COVID-19; close proximity with person with COVID-19 Associated Symptoms:no sputum production; no shortness of breath; no wheezing; no fever; no runny nose; no sore throat; no vomiting; no diarrhea; no body aches; no nausea; no change in mental status; no hypotension; no tachycardia pt's sister recently tested positive, she denies any symptoms DAYANA BREEN NP Attn: Accounting,[address] [place], [address], [facility] 02/20/2020 14:07:37 OBGyn Episode Ob Episode Information Episode Created Date Number of Fetuses Patient Bloodtype Patient rh Status Prepregnancy Weight lbs Domestic Partner Domestic Partner Phone Father Name Implementation Project Coordinator Status 08/01/20 16 1 CLOSED Fetus Data First Name Last Name Admitted to NICU Weight (g) Sex Living Outcome Pediatric Complications Fetus ID Race Codes Race Delivery Type , Spontane ous [id number] Vaginal Louis Calculation Initial Louis Date Initial Exam Date Initial Exam Provider Initial Ultrasound Date Last Menstrual Period Date Ultra Sound Weeks Gestation 0 Eighteen To Twenty Week Louis Update Ultra Sound Date Fundal Height At Umbil Quickening Date Ultra Sound Latest Weeks Gestation Final Louis Confirmed By Final Louis Confirmed Date Final Louis Date Ultra Sound Latest Days Gestation 0 0 Menstrual History Last Menstrual Date Menses Monthly On Bcp Conception Prior Menses Frequency Hcg Plus Date Menarche Onset Age Delivery Information Delivery Date Delivery Type Labor Anesthesia Weeks Gestation Incision Type Labor Labor Length Hrs Delivered By Post Complications Tubal Sterilization Discharge Date Comments 5 Discharge Information Feeding Method Contraceptive Method Maternal HG B and HCT Levels
--- OUTSIDE RECORDS SUMMARY | 2025-03-06 03:23 | XMS_ITS | Clinical Summary ---
Author Organization 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 Gender Identity Not on file Sexual Orientation Not on file Plan of Treatment Health Maintenance Due Date Last Done Comments Hepatitis C Virus (HCV) Screening 1993 TdaP Immunization 1993 Hepatitis B Immunization (1 of 3 - 19+ 3-dose series) 2012 Pap Smear 2014 Cervical Cancer Screening (CCS) 2023 HPV/Cotest 2023 Influenza Immunization (#1) 2024 SARS-COV-2 Immunization ( season) 2024 Respiratory Syncytial Virus (RSV) Immunization (Adult) (1 - 1-dose 75+ series) 2068 Meningococcal Immunization (ACWY) Aged Out No longer eligible based on patient's age to complete this topic Pneumococcal Immunization Combined Aged Out No longer eligible based on patient's age to complete this topic Rotavirus Immunization Aged Out No lo nger eligible based on patient's age to complete this topic
--- OUTSIDE RECORDS SUMMARY | 2025-03-06 03:23 | XMS_ITS | Clinical Summary ---
Author Organization [facility] Address [address] [place] [id number] Care Team Providers Care Housesmith Name Role Phone None, Provider MD Primary Care Provider Unavaila ble Allergies Active Allergy Reactions Criticality Noted Date Comments Nsaids Other (see comment) 12/25/2017 Contraindicated due to kidney issues - polycystic Medications No known medications Active Problems No known active problems Family History Medical History Relation Comments Kidney Disease Brother Diabetes Father Hyperlipidemia Father Hypertension Father Kidney Disease Father Diabetes Maternal Grandfather Hyperlipidemia Maternal Grandmother Hypertension Maternal Grandmother Diabetes Mother Hypertension Mother Pulmonary Embolism Mother Unk reason Hypertension Paternal Grandmother Kidney Disease Paternal Grandmother Kidney Disease Sister Relation Status Comments Brother Alive Father Alive Maternal Grandfather Maternal Grandmother Alive Mother Alive Paternal Grandfather Alive Paternal Grandmother Alive Sister Alive Social History Tobacco Use Types Packs/Day Years Used Date Smoking Tobacco: Never Smokeless Tobacco: Never Tobacco Cessation:Counseling Given: No Alcohol Use Standard Drinks/Week Comments Yes 0 (1 standard drink = 0.6 oz pur e alcohol) rarely Comments No Sex and Gender Information Value Date Recorded Sex Assigned at Not on file 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 Gender Identity Not on file Sexual Orientation Not on file Last Filed Vital Signs Vital Sign Reading Time Taken Comments Blood Pressure 159/106 07/19/2020 4:40 PM CDT Pulse 84 07/19/2020 4:14 PM CDT Temperature 36.3 C (97.4 F) 07/19/2020 4:14 PM CDT Respiratory Rate 16 07/19/2020 4:14 PM CDT Oxygen Saturation 100% 07/19/2020 4:14 PM CDT Inhaled Oxygen Concentration - - Weight 111.1 kg (245 lb) 07/19/2020 4:14 PM CDT Height 167.6 cm (5' 6 ) 07/19/2020 4:14 PM CDT Body Mass Index 39.54 07/19/2020 4:14 PM CDT Plan of Treatment Health Maintenance Due Date Last Done Comments Cervical Cancer Screening Pa p Smear (Age 30 to 64) Every 3 Years 1993 Annual Physical 1996 Hepatitis C 2011 DTaP, Tdap and Td Vaccines ( 1 - Tdap) 2012 Hepatitis B Vaccines (1 of 3 - 19+ 3-dose series) 2012 Cervical Cancer Screening Pa p with HPV Testing (Age 30 to 64) Every 5 Years 2023 Cervical Cancer Screening with HPV 2023 COVID-19 Vaccine (2023-2 5 season) 2024 HPV Vaccines Aged Out No longer eligi ble based on patient's age to complete this topic Meningococcal B Vaccine Aged Out No l onger eligible based on patient's age to complete this topic Meningococcal Vaccine Aged Out No alfreda erin eligible based on patient's age to complete this topic Pneumococcal Vaccine: Pediat rics (0 to 5 Years) and At-Risk Patients (6 to 49 Years) Aged Out No longer eligible b ased on patient's age to complete this topic RSV Immunizations Under 20 Months Aged Out No longer eligible based on patient's age to complete this topic Insurance [facility] Care Teams Housesmith Relationship Specialty Start Date End Date None, Provider, PCP - General 09/25/18
--- OUTSIDE RECORDS SUMMARY | 2025-03-06 03:23 | XMS_ITS | Clinical Summary ---
Author Organization [facility] [employer] Address [address] [place] [address] Care Team Providers Care Screw Down Name Role Phone Unavailable Primary Care Provider Unavailabl e Source Comments [facility],non-owned Affiliates and Associated Physician Practices is amultiple site organization consisting of ambulatory clinics and hospital sitesin [place], [place], [place] and [place]. This disclosure is being madepursuant to the Care Everywhere program and may not contain all information available regarding this patient. Last updated 18.[facility] [employer] [employer] Allergies Active Allergy Reactions Criticality Noted Date Comments Nsaids Other 03/06/2014 Polycystic kidney disease Contraindicated due to kidney issues - polycystic Medications * Be aware that medications may not be up to date on this document. Alwaysverify current medications with the patient. montelukast (Singulair) 10 MG tablet Active fluticasone propionate (Flonase) 50 MCG/ACT nasal spray Active acetaminophen (Tylenol) 500 MG capsule Take 2 (two) capsules by mouth every 6 hours 50 capsule 1 3 Active Additional Information Patient not taking.Reported on 11/27/2023 labetalol (Normodyne; Trandate) 200 MG tablet Take 2 (two) tablets by mouth 3 times daily 180 tablet 1 3 Active losartan (Cozaar) 50 MG tablet Take 2 (two) tablets by mouth once daily 180 tablet 3 4 Active NIFEdipine CR 24hr (Adalat CC) 60 MG tablet Take 1 (one) tablet by mouth 2 times daily 120 tablet 3 4 Active vitamin D3 (Cholecalcifero l) 25 MCG (1000 UNITS) tablet Take 2 (two) tablets by mouth once daily 180 tablet 3 4 Active ferrous sulfate 325 (65 FE) MG tablet Take 1 (one) tablet by mouth once daily 90 tablet 3 4 Active Active Problems Patient Care Coordination No te Formatting of this note migh t be different from the original. [employer] form completed. Diapers given. 06/30/2023; 07/28/23, 09/24/23pp (refused) Problem Noted Date Diagnosed Date Preeclampsia, third trimester 08/02/2023 Secondary hypertension 06/29/2023 Hepatitis C antibody test positive 03/12/2023 Supervision of high-risk 03/10/2023 ADPKD (autosomal dominant polycystic kidney dise ase) 06/10/2011 Chronic Hypertension 06/10/2011 Resolved Problems Problem Noted Date Diagnosed Date Resolved Date Class II Obesity affecting 06/10/2011 08/12/2023 Immunizations Immunization Administration Dates Next Due DTAP, HISTORIC VACCINE 03/02/1999,1995,03/27/1994,1993,1993 HEP A PED/ADULT VACCINE 09/29/2007 HEP A PEDS 2 DOSE 08/18/2005 HEP B VACCINE 12/31/1995,03/27/1994,1993 HIB VACCINE 12/31/1995, 4,01/30/1994,1993 Human Papilloma Virus Bivale nt Vaccine 09/29/2007 Human Papilloma Virus Marybeth valent Vaccine 08/02/2010 INFLUENZA VACCINE 08/02/2010,09/29/2007,08/18/20 05 MMR 08/09/2023(Deferred: - rubella i mmune) MMR VACCINE 08/03/1999,03/02/1999,12/25/1994 PNEUMOCOCCAL PCV7 CONJ, PEDS 09/29/2007 POLIO,HISTORIC VACCINE 03/02/1999,1993,01/30/1994,1993 TDAP (7yrs+) 06/30/2023 TDAP, HISTORIC VACCINE 05/29/2008 VARICELLA 08/02/2010 Family History Medical History Relation Name Comments CAD (Coronary Artery Disease) Father Hypertension Father Renal Disease Father Blood Clots Mother Hypertension Mother Renal Disease Paternal Grandmother Relation Name Status Comments Father Mother Paternal Grandmother Social History Tobacco Use Types Packs/Day Years Used Date Smoking Tobacco: Never Tobacco Cessation:Counseling Given: Not Answered Alcohol Use Standard Drinks/Week Comments Never 0 (1 standard drink = 0.6 oz pur e alcohol) Overall Financial Resource Strain (CARDIA) Answe r Date Recorded How hard is it for you to pa y for the very basics like food, housing, medical care, and heating? Not hard at all 09/24/2023 [facility] - Occupational Stress Questionnaire Answer Date Recorded Do you feel stress - tense, restless, nervous, or anxious, or unable to sleep at night because your mind is troubled all the time - these days? Only a little 09/24/2023 Hunger Vital Sign Answer Date Recorded Within the past 12 months, y ou worried that your food would run out before you got the money to buy more. Never true 09/24/20 23 Within the past 12 months, t he food you bought just didn't last and you didn't have money to get more. Never true 09/24/2023 PRAPARE - Transportation Answer Date Re corded In the past 12 months, has l ack of transportation kept you from medical appointments or from getting medications? No 04/2023 In the past 12 months, has l ack of transportation kept you from meetings, work, or from getting things needed for daily living? No 09/24/2023 Housing Stability Vital Sign Answer Manuel e Recorded In the last 12 months, was t here a time when you were not able to pay the mortgage or rent on time? No 09/24/2023 In the last 12 months, how many places have you lived? 1 09/24/2023 In the last 12 months, was t here a time when you did not have a steady place to sleep or slept in a penitentiary (including now)? No 09/24/2023 [place] Depression Scale Answer Date Recorded [place] Depression Scale Total 4 09/24/2023 The thought of harming myself has occurred to me . 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 Gender Identity Not on file Sexual Orientation Not on file Last Filed Vital Signs Vital Sign Reading Time Taken Comments Blood Pressure 146/99 11/27/2023 2:01 PM BRANCH ACCOUNT EXECUTIVE Pulse 80 11/27/2023 2:01 PM BRANCH ACCOUNT EXECUTIVE Temperature 36.8 C (98.2 F) 11/27/2023 2:01 PM BRANCH ACCOUNT EXECUTIVE Respiratory Rate 18 08/12/2023 11:05 AM CDT Oxygen Saturation 100% 11/27/2023 2:01 PM BRANCH ACCOUNT EXECUTIVE Inhaled Oxygen Concentration - - Weight 108.4 kg (239 lb) 11/27/2023 2:01 PM BRANCH ACCOUNT EXECUTIVE Height 167.6 cm (5' 6 ) 08/12/2023 6:55 AM CDT Body Mass Index 38.58 08/12/2023 6:55 AM CDT Plan of Treatment Health Maintenance Due Date Last Done Comments COVID-19 VACCINE ( season) 2024 06/16/2021, 05/19/2021 DEPRESSION SCREENING 10/19/2024 INFLUENZA VACCINE (Season Ended) 2025 08/02/2010, 09/29/2007, 08/18/2005 PAP SMEAR 06/02/2026 06/02/2023 DTAP/TDAP/TD VACCINES (8 - Td or Tdap) 06/30/2033 06/30/2023, 05/29/2008, 03/02/1999, Additional history exists ZOSTER VACCINE (1 of 2) 2043 HEPATITIS B VACCINE Completed 12/31/1995, 03/27/1994, 1993 HIB VACCINE Completed 12/31/1995, 06/1994, 01/30/1994, Additional history exists PNEUMOCOCCAL VACCINE Aged Out 09/29/2007 No long er eligible based on patient's age to complete this topic HPV VACCINE Completed 08/02/2010, 09/29/2007 HIV SCREENING Completed 06/30/2023, 03/10/2023 HEPATITIS C SCREENING Completed 08/11/2023 , 08/11/2023, 06/29/2023, Additional history exists MENINGOCOCCAL (Group B) VACCINE SHARED DECISION-MAKING Aged Out No longer eligible based on patient's age to complete this topic MENINGOCOCCAL GROUPS A/C/Y/W VACCINE Aged Out No longer eligible based on patient's age to complete this topic Goals Goal Patient Goal Type Associated Problems Recent Progress Patient-Stated? Author Medication Management General No Nevin Hand, RN Note: Expected end date: ongoing Interventions: Take all medications as prescribed Let your doctor know right away about any changes in your medications Make sure to request a refill of your medication at least one week prior to your last dose Medication Management General No Nevin Hand RN Note: Expected end date: ongoing Interventions: Take all medications as prescribed Let your doctor know right away about any changes in your medications Make sure to request a refill of your medication at least one week prior to your last dose Procedures Procedure Name Priority Date/Time Associated Diagnosis Comments HEPATITIS SCREEN ACUTE Routine 08/11/2023 11:09 AM CDT HIV-1 HIV-2 ANTIBODY + HIV P24 AG PANEL Routine 06/30/2023 1:54 PM CDT Supervision of high risk in second trimester PAP IG LB RFLX HPV APTIMA ASCU Routine 06/02/2023 2:00 PM CDT Cervical cancer screening from Last 3 Months or Most Recently Relevant to Health Maintenance Results * (ABNORMAL) HEPATITIS SCREEN ACUTE (08/11/2023 11:09 AM CDT) HAV Antibody IgM Non Reactive Non Reactive 08/11/2023 12:25 PM CDT [facility] HBsAg Non Reactive Non Reactive 08/11/2023 12:25 PM CDT [facility] HBc Antibody IgM Non Reactive Non Reactive 08/11/2023 12:25 PM CDT [facility] HCV Antibody Screen REACTIVE(A) Non Reactive 08/11/2023 12:25 PM CDT [facility] Blood BLOOD SPECIMEN / Unknown Lab Venipuncture / Unknown 08/11/2023 11:09 AM CDT 08/11/2023 11:32 AM CDT Narrative [facility] - 08/11/2023 12:25 PM CDT A reactive result is consistent with current HCV infection or past HCV infection that has been resolved. Reflex testing to Hepatitis C Virus RNA Quantitative, Real Time PCR will be performed. See separate report. us Aldo Cabrera MD LAB - CHEMISTRY ORDERA BLES Final Result Performing Organization Address City/[facility]/ZIP Co de Phone Number [facility] [address] [place] [address] * HIV-1 HIV-2 ANTIBODY + HIV P24 AG PANEL (06/30/2023 1:54 PM CDT) HIV1/2 Ab + P24 Ag Non Reactive Non Reactive 06/30/2023 3:32 PM CDT [facility] Blood BLOOD SPECIMEN / Unknown Venipuncture / Unknown 06/30/2023 1:54 PM CDT 06/30/2023 2:07 PM CDT Narrative [facility] - 06/30/2023 3:32 PM CDT No Laboratory evidence of HIV infection. us Melecio Summers MD LAB - CHEMISTRY ORDERABLES Karen l Result Performing Organization Address [facility] Co de Phone Number [facility] [address] [place] [address] * PAP IG LB RFLX HPV APTIMA ASCU (06/02/2023 2:00 PM CDT) Diagnosis Comment 06/08/2023 6:07 AM CDT [facility] ([facility]) Comment: NEGATIVE FOR INTRAEPITHELIAL LESION OR MALIGNANCY. THIS SPECIMEN WAS RESCREENED PART OF OUR BUNDLER PROGRAM. Specimen Adequacy Comment 023 6:07 AM CDT [facility] ([facility]) Comment:Satisfactory for hank luation. No endocervical component is identified. Performed by Comment 06/08/2023 6:07 AM CDT [facility] ([facility]) Comment:Ashley Ricketts, Cytotech nologist ([facility]) QC Reviewed by Comment 06/08/2023 6:07 AM CDT [facility] ([facility]) Comment:Tomi Ceballos, Cyt otechnologist ([facility]) Comment . 06/08/2023 6:07 AM CDT [facility] ([facility]) Note Comment 06/08/2023 6:07 AM CDT [facility] ([facility]) Comment: The Pap smear is a screening test designed to aid in the detection of premalignant and malignant conditions of the uterine cervix. It is not a diagnostic procedure and should not be used as the sole means of detecting cervical cancer. Both false-positive and false-negative reports do occur. [facility]GLBP CPT Code Automation Comment 06/08/2023 6:07 AM CDT [facility] ([facility]) Comment: This liquid based ThinPrep(R) pap test was screened with the use of an image guided system. Note Comment 06/08/2023 6:07 AM CDT [facility] ([facility]) Comment: The HPV DNA reflex criteria were not met with this specimen result therefore, no HPV testing was performed. Pathology/Cytolo gy PART OF UTERINE CERVIX / Unknown Collection / Unknown 06/02/2023 2:00 PM CDT 06/02/2023 2:07 PM CDT Narrative [facility] ([facility]) - 06/08/2023 6:07 AM CDT Performed at: - [address] [id number] On Air Director: Sushma Joseph MD, Phone: [phone] Performed at: 02 - [address] [id number] On Air Director: Grace Melgar MD, Phone: [phone] Specimen Comment: No. of containers..01 ThinPrep Vial Melecio Summers MD LAB - PATHOLOGY/CYTOLOGY ORDERA BLES Final Result Performing Organization Address City/State/[facility] Co de Phone Number [facility] ([facility]) [address] [place] [address] from Last 3 Months or Most Recently Relevant to Health Maintenance Insurance [facility] Advance Directives * Full Code (Latest Code Status on File) Date Activated Date Inactivated Comments 08/06/2023 1:54 PM 08/12/2023 3:52 PM * Full Code Date Activated Date Inactivated Comments 07/29/2023 11:42 AM 08/06/2023 1:54 PM
[2025-03-06 04:47] LABS: Basophils Absolute Auto 0.1 K/mm3 (0.0-0.1); Basophils Percent Auto 0.5 % (0.2-1.2); Eosinophils Percent Auto 0.3 % (0-4.4); Hematocrit 38.6 % (37.0-47.0); Hemoglobin 12.7 g/dL (12.0-15.0); Immature Granulocyte Absolute 0.03 K/mm3 (0.00-0.031); Immature Granulocyte Percent A 0.3 % (0-0.5); Lymphocytes Absolute Auto 1.33 K/mm3 (0.9-3.2); Lymphocytes Percent Auto 12.9 % (18.3-44.2); Mean Corpuscular HGB Conc 32.9 g/dl (32-36); Mean Corpuscular Hemoglobin 26.8 pg (26-34); Mean Corpuscular Volume 81.4 fl (80-100); Mean Platelet Volume 9.8 fl (7.4-10.4); Monocytes Absolute Auto 0.4 K/mm3 (0.1-0.6); Monocytes Percent Auto 3.4 % (2.6-8.5); Neutrophils Absolute Auto 8.5 K/mm3 (1.3-6.7); Neutrophils Percent Auto 82.6 % (45.5-73.1); Platelet Count Result 406 k/mm3 (150-375); Red Blood Count 4.74 M/mm3 (4.2-5.4); Red Cell Distribution Width 13.2 % (11.5-14.5); White Blood Count 10.3 K/mm3 (4.5-10.0)
[2025-03-06 05:03] LABS: Alanine Aminotransferase 75 U/L (6-35); Albumin Level 4.2 g/dL (3.5-5.1); Alkaline Phosphatase 73 U/L (38-126); Anion Gap 9 mmol/L (4-12); Aspartate Amino Transferase 51 U/L (14-36); Bilirubin,Total 0.6 mg/dL (0.2-1.3); Blood Urea Nitrogen 9 mg/dL (7-17); Calcium 8.7 mg/dL (8.4-10.2); Carbon Dioxide 26 mmol/L (22-30); Chloride 102 mmol/L (98-107); Estimated CRCL calculation 147 ml/min; Estimated Glomerular Filt Rate > 60; Glucose 127 mg/dL (65-110); Lipase 52 U/L (23-300); Potassium 3.4 mmol/L (3.4-5.0); Sodium 137 mmol/L (137-145)
--- OUTSIDE RECORDS SUMMARY | 2025-03-06 05:10 | XMS_ITS | Clinical Summary ---
Author Organization [facility] Address [address] [place] [address] Care Team Providers Care Skidder Lever Operator Name Role Phone Unavailable Primary Care Provider Unavailabl e Source Comments [facility],non-owned Affiliates and Associated Physician Practices is amultiple site organization consisting of ambulatory clinics and hospital sitesin [place], [place], [place] and [place]. This disclosure is being madepursuant to the Care Everywhere program and may not contain all information available regarding this patient. Last updated 18.[facility] Allergies Active Allergy Reactions Criticality Noted Date [...] migh t be different from the original. [employer] form completed. Diapers given. 06/30/2023; [...] and heating? Not hard at all 09/24/2023 [facility] - Occupational Stress [...] place to sleep or slept in a alf (including now)? No 09/24/2023 [place] Depression Scale Answer Date Recorded [place] Depression Scale Total 4 09/24/2023 The thought of harming myself has occurred to me . 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 Gender Identity Not on file Sexual Orientation Not on file Last Filed Vital Signs Vital Sign Reading Time Taken Comments Blood Pressure 146/99 11/27/2023 2:01 PM REORDERING CLERK Pulse 80 11/27/2023 2:01 PM REORDERING CLERK Temperature 36.8 C (98.2 F) 11/27/2023 2:01 PM REORDERING CLERK Respiratory Rate 18 08/12/2023 11:05 AM CDT Oxygen Saturation 100% 11/27/2023 2:01 PM REORDERING CLERK Inhaled Oxygen Concentration - - Weight 108.4 kg (239 lb) 11/27/2023 2:01 PM REORDERING CLERK Height 167.6 cm (5' 6 ) 08/12/2023 [...] Non Reactive 08/11/2023 12:25 PM CDT [facility] HBsAg Non Reactive Non Reactive 08/11/2023 12:25 PM CDT [facility] HBc Antibody IgM Non Reactive Non Reactive 08/11/2023 12:25 PM CDT [facility] HCV Antibody Screen REACTIVE(A) Non Reactive 08/11/2023 12:25 PM CDT [facility] Blood BLOOD SPECIMEN / Unknown Lab Venipuncture / Unknown 08/11/2023 11:09 AM CDT 08/11/2023 11:32 AM CDT Narrative [facility] - 08/11/2023 12:25 PM CDT A reactive result is consistent with current HCV infection or past HCV infection that has been resolved. Reflex testing to Hepatitis C Virus RNA Quantitative, Real Time PCR will be performed. See separate report. us Aldo Cabrera MD LAB - CHEMISTRY ORDERA BLES Final Result Performing Organization Address City/[facility]/ZIP Co de Phone Number [facility] [address] [place] [address] * HIV-1 HIV-2 ANTIBODY + HIV P24 AG PANEL (06/30/2023 1:54 PM CDT) HIV1/2 Ab + P24 Ag Non Reactive Non Reactive 06/30/2023 3:32 PM CDT [facility] Blood BLOOD SPECIMEN / Unknown Venipuncture / Unknown 06/30/2023 1:54 PM CDT 06/30/2023 2:07 PM CDT Narrative [facility] - 06/30/2023 3:32 PM CDT No Laboratory evidence of HIV infection. us Melecio Summers MD LAB - CHEMISTRY ORDERABLES Karen l Result Performing Organization Address [facility] Co de Phone Number [facility] [address] [place] [address] * PAP IG LB RFLX HPV APTIMA ASCU (06/02/2023 2:00 PM CDT) Diagnosis Comment 06/08/2023 6:07 AM CDT [facility] ([facility]) Comment: NEGATIVE FOR INTRAEPITHELIAL LESION OR MALIGNANCY. THIS SPECIMEN WAS RESCREENED PART OF OUR SPUD SORTER PROGRAM. Specimen Adequacy Comment 023 6:07 AM CDT [facility] ([facility]) Comment:Satisfactory for hank luation. No endocervical component is identified. Performed by Comment 06/08/2023 6:07 AM CDT [facility] ([facility]) Comment:Ashley Ricketts, Cytotech nologist ([facility]) QC Reviewed by Comment 06/08/2023 6:07 AM CDT [facility] ([facility]) Comment:Tomi Ceballos, Cyt otechnologist ([facility]) Comment . 06/08/2023 6:07 AM CDT [facility] ([facility]) Note Comment 06/08/2023 6:07 AM CDT [facility] ([facility]) Comment: The Pap smear is a screening test designed to aid in the detection of premalignant and malignant conditions of the uterine cervix. It is not a diagnostic procedure and should not be used as the sole means of detecting cervical cancer. Both false-positive and false-negative reports do occur. IGLBP CPT Code Automation Comment 06/08/2023 6:07 AM CDT [facility] ([facility]) Comment: This liquid based ThinPrep(R) pap test was screened with the use of an image guided system. Note Comment 06/08/2023 6:07 AM CDT [facility] ([facility]) Comment: The HPV DNA reflex criteria were not met with this specimen result therefore, no HPV testing was performed. Pathology/Cytolo gy PART OF UTERINE CERVIX / Unknown Collection / Unknown 06/02/2023 2:00 PM CDT 06/02/2023 2:07 PM CDT Narrative [facility] ([facility]) - 06/08/2023 6:07 AM CDT Performed at: - [address] [id number] Tenderizer Tender: Sushma Joseph MD, Phone: [phone] Performed at: 02 - [address] [id number] Tenderizer Tender: Grace Melgar MD, Phone: [phone] Specimen Comment: No. of containers..01 ThinPrep Vial Melecio Summers MD LAB - PATHOLOGY/CYTOLOGY ORDERA BLES Final Result Performing Organization Address City/State/[facility] Co de Phone Number [facility] ([facility]) [address] [place] [address] from Last 3 Months or Most Recently Relevant to Health Maintenance Insurance [facility] Advance Directives * Full Code (Latest Code Status on File) Date Activated Date Inactivated Comments 08/06/2023 1:54 PM 08/12/2023 3:52 PM * Full Code Date Activated Date Inactivated Comments 07/29/2023 11:42 AM 08/06/2023 1:54 PM
--- OUTSIDE RECORDS SUMMARY | 2025-03-06 05:10 | XMS_ITS | Clinical Summary ---
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
--- OUTSIDE RECORDS SUMMARY | 2025-03-06 05:10 | XMS_ITS | Clinical Summary ---
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
[2025-03-06] MEDS: ONDANSETRON INJ 4 MG/2 ML VIAL IV PUSH ×2 (05:13→09:24)
[2025-03-06] MEDS: MORPHINE SULFATE (*CRX) 4 MG/ML INJ IV PUSH (05:13)
[2025-03-06 05:27] LABS: Add Urine Microscopic? YES; Appearance Urine Clear (Clear); Bacteria Urine None Seen /hpf; Bilirubin Urine Negative (Negative); Blood Urine 2+ (Negative); Color Urine Yellow (Yellow); Glucose Urine UA Negative (Negative); Ketones Urine Negative (Negative); Leukocyte Esterase Ur Negative LEU/UL (Negative); Need Manual Microscopic Reviewed; Nitrate Urine Negative (Negative); Non Pathogenic Casts 0-2; Protein Urine 3+ mg/dL (Negative); RBC Urine 21-50 /hpf (0-2); Specific Grav Ur 1.011 (1.001-1.035); Squamous Epithelial Cell Urine Occasional /hpf (Few); Urobilinogen Urine 0.2 mg/dL (<2.0); pH Urine 7.5 (5.0-9.0)
--- NOTE | 2025-03-06 05:28 | ED_ITS ---
HPI - Abdominal Pain General Chief Complaint: Abdominal Pain <Charline Freire MD - Last Filed: 03/06/25 07:14> Stated Complaint: right side abdominal pain, nausea <Charline Freire MD - Last Filed: 03/06/25 07:14> Time Seen by Provider: 03/06/25 04:11 <Charline Freire MD - Last Filed: 03/06/25 07:14> History of Present Illness HPI narrative: Patient presents with nausea vomiting and right upper quadrant pain that has been ongoing intermittently for the past week. Usually resolves on its own but today was much worse so finally came in to get checked. <Charline Freire MD - Last Filed: 03/06/25 07:14> Related Data Allergies/Adverse Reactions: Allergies Allergy/AdvReac Type Severity Reaction Status Date / Time NSAIDS (Non-Steroidal AdvReac Unknown has Verified 03/06/25 03:29 Anti-Inflamma polycystic kidneys, told not to take <Charline Freire MD - Last Filed: 03/06/25 07:14> Review of Systems 2 Review of Systems: All systems reviewed & are unremarkable except as noted in HPI and below <Charline Freire MD - Last Filed: 03/06/25 07:14> Exam 2 Narrative: EXAMINATION OF ORGAN SYSTEMS/BODY AREAS: Constitutional: Vital signs per nursing GENERAL:[No acute distress, non-toxic appearing.] HEAD: Normal with no signs of head trauma. EYES: EOMI, conjunctiva normal ENT: Hearing grossly intact LUNGS: Nonlabored breathing. HEART: [Regular rate and rhythm] ABD: [Soft], slight tenderness to palpation right upper quadrant EXT: Normal range of motion SKIN: [No rashes or lesions.] NEURO: [Alert and oriented x 3. No gross focal sensory or strength deficits.] PSYCH: Normal affect <Charline Freire MD - Last Filed: 03/06/25 07:14> Course Course Emergency Course: Patient signed out to me. Overnight ED physician was concerned for cholecystitis given leukocytosis and mildly elevated LFTs as well as patient's presentation. There was an of suspicion based on this as well as her independent interpretation of CT scan that she already discussed patient with Dr. Bassett who agreed with admitting patient with himself on consultation. Both CT and ultrasound result confirming this diagnosis as well as additional as below. Patient reassessed at bedside approximately 830. She reports the pain is improved. She continues to have intermittent nausea the believes this might be attributed to her having not eaten today. IV antibiotics scheduled are ordered (x2) as is NPO status. Patient discussed with on-call hospitalist Dr. Croft who accepts admission. Patient stable. <Kayce Mackenzie MD - Last Filed: 03/06/25 08:37> Vital Signs Vital signs: Vital Signs Temperature 97.8 F 03/06/25 03:21 Pulse Rate 91 03/06/25 03:21 Respiratory Rate 18 03/06/25 03:21 Blood Pressure 211/110 H 03/06/25 03:21 Pulse Oximetry 100 03/06/25 03:21 Oxygen Delivery Room Air 03/06/25 03:21 Temperature 97.8 F 03/06/25 03:21 Pulse Rate 71 03/06/25 05:30 Respiratory Rate 16 03/06/25 05:30 Blood Pressure 171/102 H 03/06/25 05:30 Pulse Oximetry 98 03/06/25 05:30 Oxygen Delivery Room Air 03/06/25 03:21 <Charline Freire MD - Last Filed: 03/06/25 07:14> Vital Signs Temperature 97.8 F 03/06/25 03:21 Pulse Rate 91 03/06/25 03:21 Respiratory Rate 18 03/06/25 03:21 Blood Pressure 211/110 H 03/06/25 03:21 Pulse Oximetry 100 03/06/25 03:21 Oxygen Delivery Room Air 03/06/25 03:21 Temperature 97.8 F 03/06/25 03:21 Pulse Rate 71 03/06/25 05:30 Respiratory Rate 16 03/06/25 05:30 Blood Pressure 171/102 H 03/06/25 05:30 Pulse Oximetry 98 03/06/25 05:30 Oxygen Delivery Room Air 03/06/25 03:21 <Kayce Mackenzie MD - Last Filed: 03/06/25 08:37> MDM - Abdominal Pain MDM Narrative Medical decision making narrative: Patient presenting with intermittent right upper quadrant pain the almost last week, with nausea vomiting, she does have right upper quadrant tenderness on exam, I am concerned for possible biliary cause, versus possible gastritis, given IV morphine and Zofran and CT obtained. On my independent interpretation of CT, she does appear to have gallbladder wall thickening. Slight white count and transaminitis. I am concerned for possible cholecystitis given these findings, will await official radiology read but I will obtain ultrasound. Discussed with General surgery who recommends ultrasound, if cholecystitis, admit to hospitalist and they will consult Updated patient, who feels much better on repeat evaluation, is agreeable to admission if it will fix her, so we will await ultrasound and final CT read. Signed out to oncoming ER physician. <Charline Freire MD - Last Filed: 03/06/25 07:14> Lab Data Result diagrams: 03/06/25 04:42 03/06/25 04:42 <Charline Freire MD - Last Filed: 03/06/25 07:14> Labs: Lab Results 03/06/25 03/06/25 Range/Units 04:42 05:30 WBC 10.3 H (4.5-10.0) K/mm3 RBC 4.74 (4.2-5.4) M/mm3 Hgb 12.7 (12.0-15.0) g/dL Hct 38.6 (37.0-47.0) % MCV 81.4 (80-100) fl MCH 26.8 (26-34) pg MCHC 32.9 (32-36) g/dl RDW 13.2 (11.5-14.5) % Plt Count 406 H (150-375) k/mm3 MPV 9.8 (7.4-10.4) fl Immature Gran % (Auto) 0.3 (0-0.5) % Neut % (Auto) 82.6 H (45.5-73.1) % Lymph % (Auto) 12.9 L (18.3-44.2) % [place] % (Auto) 3.4 (2.6-8.5) % Eos % (Auto) 0.3 (0-4.4) % Baso % (Auto) 0.5 (0.2-1.2) % Lymph # (Auto) 1.33 (0.9-3.2) K/mm3 [place] # (Auto) 0.4 (0.1-0.6) K/mm3 Eos # (Auto) 0.0 (0-0.3) K/mm3 Baso # (Auto) 0.1 (0.0-0.1) K/mm3 Abs Immat Gran (auto) 0.03 (0.00-0.031) K/mm3 Absolute Neuts (auto) 8.5 H (1.3-6.7) K/mm3 Absolute Nucleated RBC 0.000 (0.0-0.012) K/mm3 Nucleated RBC % 0.0 (0.0-0.2) % Sodium 137 (137-145) mmol/L Potassium 3.4 (3.4-5.0) mmol/L Chloride 102 (98-107) mmol/L Carbon Dioxide 26 (22-30) mmol/L Anion Gap 9 (4-12) mmol/L BUN 9 (7-17) mg/dL Creatinine 0.59 L (0.7-1.0) mg/dL Estim Creat Clear Calc 147 ml/min Estimated GFR > 60 (59 - ) Glucose 127 H (65-110) mg/dL Calcium 8.7 (8.4-10.2) mg/dL Total Bilirubin 0.6 (0.2-1.3) mg/dL AST 51 H (14-36) U/L ALT 75 H (6-35) U/L Alkaline Phosphatase 73 (38-126) U/L Total Protein 8.0 (6.3-8.2) g/dL Albumin 4.2 (3.5-5.1) g/dL Lipase 52 (23-300) U/L Urine Color Yellow (Yellow) Urine Appearance Clear (Clear) Urine pH 7.5 (5.0-9.0) Ur Specific [place] 1.011 (1.001-1.035) Urine Protein 3+ H (Negative) mg/dL Urine Glucose (UA) Negative (Negative) mg/dL Urine Ketones Negative (Negative) mg/dL Ur Blood (Man) 2+ H (Negative) Urine Nitrate Negative (Negative) Urine Bilirubin Negative (Negative) Urine Urobilinogen 0.2 (<2.0) mg/dL Add Ur Microanalysis Reviewed Leukocyte Esterase Rfl Negative (Negative) VANDANA/UL Urine RBC 21-50 H (0-2) /hpf Urine WBC 11-20 H (0-3) /hpf Ur Squamous Epith Cells Occasional (Few) /hpf Urine Bacteria None seen /hpf Urine Casts 0-2 POC Urine HCG, Qual Negative (Negative) <Charline Freire MD - Last Filed: 03/06/25 07:14> Lab Results 03/06/25 03/06/25 Range/Units 04:42 05:30 WBC 10.3 H (4.5-10.0) K/mm3 RBC 4.74 (4.2-5.4) M/mm3 Hgb 12.7 (12.0-15.0) g/dL Hct 38.6 (37.0-47.0) % MCV 81.4 (80-100) fl MCH 26.8 (26-34) pg MCHC 32.9 (32-36) g/dl RDW 13.2 (11.5-14.5) % Plt Count 406 H (150-375) k/mm3 MPV 9.8 (7.4-10.4) fl Immature Gran % (Auto) 0.3 (0-0.5) % Neut % (Auto) 82.6 H (45.5-73.1) % Lymph % (Auto) 12.9 L (18.3-44.2) % [place] % (Auto) 3.4 (2.6-8.5) % Eos % (Auto) 0.3 (0-4.4) % Baso % (Auto) 0.5 (0.2-1.2) % Lymph # (Auto) 1.33 (0.9-3.2) K/mm3 [place] # (Auto) 0.4 (0.1-0.6) K/mm3 Eos # (Auto) 0.0 (0-0.3) K/mm3 Baso # (Auto) 0.1 (0.0-0.1) K/mm3 Abs Immat Gran (auto) 0.03 (0.00-0.031) K/mm3 Absolute Neuts (auto) 8.5 H (1.3-6.7) K/mm3 Absolute Nucleated RBC 0.000 (0.0-0.012) K/mm3 Nucleated RBC % 0.0 (0.0-0.2) % Sodium 137 (137-145) mmol/L Potassium 3.4 (3.4-5.0) mmol/L Chloride 102 (98-107) mmol/L Carbon Dioxide 26 (22-30) mmol/L Anion Gap 9 (4-12) mmol/L BUN 9 (7-17) mg/dL Creatinine 0.59 L (0.7-1.0) mg/dL Estim Creat Clear Calc 147 ml/min Estimated GFR > 60 (59 - ) Glucose 127 H (65-110) mg/dL Calcium 8.7 (8.4-10.2) mg/dL Total Bilirubin 0.6 (0.2-1.3) mg/dL AST 51 H (14-36) U/L ALT 75 H (6-35) U/L Alkaline Phosphatase 73 (38-126) U/L Total Protein 8.0 (6.3-8.2) g/dL Albumin 4.2 (3.5-5.1) g/dL Lipase 52 (23-300) U/L Urine Color Yellow (Yellow) Urine Appearance Clear (Clear) Urine pH 7.5 (5.0-9.0) Ur Specific [place] 1.011 (1.001-1.035) Urine Protein 3+ H (Negative) mg/dL Urine Glucose (UA) Negative (Negative) mg/dL Urine Ketones Negative (Negative) mg/dL Ur Blood (Man) 2+ H (Negative) Urine Nitrate Negative (Negative) Urine Bilirubin Negative (Negative) Urine Urobilinogen 0.2 (<2.0) mg/dL Add Ur Microanalysis Reviewed Leukocyte Esterase Rfl Negative (Negative) VANDANA/UL Urine RBC 21-50 H (0-2) /hpf Urine WBC 11-20 H (0-3) /hpf Ur Squamous Epith Cells Occasional (Few) /hpf Urine Bacteria None seen /hpf Urine Casts 0-2 POC Urine HCG, Qual Negative (Negative) <Kayce Mackenzie MD - Last Filed: 03/06/25 08:37> Imaging Data Radiologist's impression: ITS Impressions Abdomen/Pelvis CT 03/06/25 07:58 IMPRESSION: 1. Cholelithiasis with likely early acute cholecystitis. 2. 4.9 cm right adnexal cyst. 3. Numerous bilateral renal cysts and a few hepatic cysts consistent with autosomal dominant polycystic kidney disease. Abdomen Ultrasound 03/06/25 08:02 IMPRESSION: 1. Cholelithiasis with likely acute cholecystitis. <Charline Freire MD - Last Filed: 03/06/25 07:14> ITS Impressions Abdomen/Pelvis CT 03/06/25 07:58 IMPRESSION: 1. Cholelithiasis with likely early acute cholecystitis. 2. 4.9 cm right adnexal cyst. 3. Numerous bilateral renal cysts and a few hepatic cysts consistent with autosomal dominant polycystic kidney disease. Abdomen Ultrasound 03/06/25 08:02 IMPRESSION: 1. Cholelithiasis with likely acute cholecystitis. <Kayce Mackenzie MD - Last Filed: 03/06/25 08:37> Discharge Plan Discharge Clinical Impression: Abdominal pain, RUQ, Nausea and vomiting, Cholelithiasis with acute cholecystitis, Simple adnexal cyst less than 5 cm in diameter in premenopausal patient, ADPKD (autosomal dominant polycystic kidney disease) <Charline Freire MD - Last Filed: 03/06/25 07:14> Patient Disposition: Still a Patient <Charline Freire MD - Last Filed: 03/06/25 07:14> Condition: Stable <Charline Freire MD - Last Filed: 03/06/25 07:14> Instructions: Antibiotic Form <Charline Freire MD - Last Filed: 03/06/25 07:14> Patient Language: Finnish <Charline Freire MD - Last Filed: 03/06/25 07:14> Prescriptions: No Action tramadol [Ultram] 50 mg tablet 50 mg PO Q6H PRN (Reason: pain) Qty: 20 0RF albuterol sulfate 90 mcg/actuation aerosol powdr breath activated 2 inh inhalation Q6H PRN (Reason: cough) Qty: 1 0RF <Charline Freire MD - Last Filed: 03/06/25 07:14> Follow-up/Referrals: Nupur,Griffin Neal MD [Primary Care Provider] - <Charline Freire MD - Last Filed: 03/06/25 07:14>
[2025-03-06 05:30] VITALS: BP 171/102; PULSE 71; RESP 16; O2SAT 98
[2025-03-06 05:32] LABS: BEDSIDEPREGUCG Negative (Negative)
--- NOTE | 2025-03-06 06:15 | PC.NURSE ---
pt currently at ct.
--- NOTE | 2025-03-06 06:23 | PC.NURSE ---
pt returned from ct and reconnected to monitor.
[2025-03-06] MEDS: CIPROFLOXACIN 400 MG/D5W 200ML 200 ML 200 MG IVPB ×2 (08:35→22:01)
[2025-03-06 08:38] VITALS: BP 161/100; PULSE 73; RESP 18; O2SAT 99
[2025-03-06] MEDS: metroNIDAZOLE 500 MG/ISO 100ML 500 MG/100 ML BAG 100 MG IVPB ×2 (09:01→16:58)
[2025-03-06 09:34] VITALS: BP 162/100; PULSE 87; RESP 18; TEMP 36.6; O2SAT 96
[2025-03-06 09:39] VITALS: BMI 39.5
--- NOTE | 2025-03-06 09:48 | ADMGEN ---
This patient, Jenelle Plummer, was admitted to 3 [facility] Surg Room 304-01. Patient/family oriented to hospital policies and general routines including ID bracelet, bed and alarms, visiting hours, pain management, procedures, bathroom and other care routines, personal items, smoking policy, room service/diet, and visiting hours. Information on how to activate the Rapid Response Team has been discussed. Patient/Family are encouraged to report perceived risks to care and to ask questions if they do not understand what they are told or what they should do. got report from Ruthie
[2025-03-06] MEDS: LACTATED RINGERS 1,000 ML 125 ML IV CONT ×2 (10:04→19:00)
--- NOTE | 2025-03-06 12:15 | P.HP_ITS ---
H&P: HPI History of Present Illness Date/Time: 03/06/25 12:15 Chief Complaint: abd pain Narrative: 29 yo female with PMH with PMH of PCKD and HTN who presented to the ER on account of abd pain which started 2 days ago, RUQ, sharp and 8/10 in intensity, and few occasions of vomiting, but denies any chest pain, SOB, fever, diarrhea or focal deficits. ER eval showed BP 211/110, Labs notable for Cr 0.59. CT AP showed cholelithiasis with possible acute cholecystitis and 4.9cm right adnexal mass, numerous bilateal renal cysts and a few hepatic cysts consitent with ADPCKD. US Abd showed cholelithiasis with likely acute cholecystitis. Gen surgery was consulted prior to admission Review of Systems Review of Systems: All other systems were reviewed and negative except as noted in the HPI above [facility] Past Medical History Medical History (Updated 03/06/25 @ 12:21 by GEOFF Head) Hypertension Polycystic kidney disease Surgical History Surgical History (Updated 03/06/25 @ 12:21 by GEOFF Head) History of D&C Family History Family History (Updated 03/06/25 @ 09:52 by Ashvin Dwyer RN LICPENKamar) Father Kidney polycystic disease Diabetes mellitus Hypertension Atherosclerosis Mother Diabetes mellitus Hypertension Social History Social History Smoking status: Never smoker Alcohol intake: never Substance use: never Substance use type: does not use Do You Feel Safe in your Home?: Yes Lack of Transportation: No Lack of Food: Never True Current Housing: I Have Housing Concerned About Future Housing: No Difficulty Paying Gas/Electric Bills: No Difficulty Paying for Meds: No Currently Unemployed: No Education: Decline to Answer Difficulty w/ Childcare or Family Care: No Spiritual care concerns: No Meds Home Medications and Allergies Home Medications ?Medication ?Instructions ?Recorded ?Confirmed ?Type amlodipine 5 mg tablet 5 mg PO DAILY 03/06/25 03/06/25 History losartan 50 mg tablet 50 mg PO DAILY 03/06/25 03/06/25 History Allergies Allergy/AdvReac Type Severity Reaction Status Date / Time NSAIDS (Non-Steroidal AdvReac Unknown has Verified 03/06/25 10:04 Anti-Inflamma polycystic kidneys, told not to take Vital Signs Vital Signs - 24 hr 03/06/25 03:21 03/06/25 05:30 03/06/25 08:38 Temperature 97.8 F Pulse Rate 91 71 73 Respiratory Rate 18 16 18 Blood Pressure 211/110 H 171/102 H 161/100 H Pulse Oximetry 100 98 99 Oxygen Delivery Room Air 03/06/25 09:34 Temperature 97.8 F Pulse Rate 87 Respiratory Rate 18 Blood Pressure 162/100 H Pulse Oximetry 96 Oxygen Delivery H&P: Results Labs Labs: Short CBC 03/06/25 Range/Units 04:42 WBC 10.3 H (4.5-10.0) K/mm3 Hgb 12.7 (12.0-15.0) g/dL Hct 38.6 (37.0-47.0) % Plt Count 406 H (150-375) k/mm3 BMP 03/06/25 04:42 Sodium 137 Potassium 3.4 Chloride 102 Carbon Dioxide 26 BUN 9 Creatinine 0.59 L Glucose 127 H Calcium 8.7 Liver Function 03/06/25 Range/Units 04:42 Total Bilirubin 0.6 (0.2-1.3) mg/dL AST 51 H (14-36) U/L ALT 75 H (6-35) U/L Alkaline Phosphatase 73 (38-126) U/L Albumin 4.2 (3.5-5.1) g/dL Urine 03/06/25 Range/Units 04:42 Urine Color Yellow (Yellow) Urine Appearance Clear (Clear) Urine pH 7.5 (5.0-9.0) Ur Specific [place] 1.011 (1.001-1.035) Urine Protein 3+ H (Negative) mg/dL Urine Glucose (UA) Negative (Negative) mg/dL Assessment and Plan Assessment and plan (1) Cholelithiasis with acute cholecystitis: Code(s): K80.00 - Calculus of gallbladder with acute cholecystitis without obstruction Status: Acute Plan Cholelithiasis with acute cholecystitis CTAP and US abd reviewed Blood cultures Continue Abx, NPO and IVF Gen surgery consulted HTN with elevated blood pressures Hydralazine 10mg PRN IV ADPCKD continue above care DVT prophylaxis on Sq Lovenox Full code Surrogate decision maker Father, Emmett Plummer Hospitalist [facility] Advance Care Plan I have confirmed that the patient's Advanced Care Plan is present, code status is documented, or surrogate decision maker is listed in patient medical record.: Yes Medication Reconciliation I have utilized all available resources to obtain, update and review the patients current medications (includes all prescriptions, OTC, herbals, cannabis, and nutritional supplements).: Yes
--- NOTE | 2025-03-06 12:16 | P.CONGS_ITS ---
Assessment and Plan Assessment and plan (1) Cholelithiasis with acute cholecystitis: Code(s): K80.00 - Calculus of gallbladder with acute cholecystitis without obstruction Status: Acute Assessment and Plan: Patient presents with an acute onset of RUQ abdominal pain occurring after eating fatty food. CT and ultrasound showed cholelithiasis with early acute cholecystitis. Her abdominal pain has improved since admission and she is only mildly tender on exam. We discussed both nonoperative management with dietary modifications versus surgical management in detail. Continue IV antibiotics for now and will keep her NPO with IV fluids. Further plans for possible surgery will be decided after discussing the case further with Dr. Bassett. (2) Polycystic kidney disease: Code(s): Q61.3 - Polycystic kidney, unspecified Status: Chronic (3) Hypertension: Code(s): I10 - Essential (primary) hypertension Status: Chronic Assessment and Plan: Management per primary team History of Present Illness Consult details Consult date: 03/06/25 Reason for consult: other ( Cholelithiasis with early acute cholecystitis) Requesting physician: Kayce Mackenzie MD Narrative: This is a 29-year-old female with history of hypertension and polycystic kidney disease, who presented to the emergency department with complaints of right upper quadrant abdominal pain. She had an episode about 2 months ago that resolved spontaneously. This was associated with nausea and vomiting. She felt well up until about a week ago. She had another episode of RUQ abdominal pain. Her episodes have happened in the evenings after eating fatty foods. This episode again resolved and she had episodes of pain last 2 nights. Last night, her pain started a few hours after eating fried chicken. This episode was more severe and did not improve with time. This was associated with nausea and vomiting. Due to her severe pain, she came into the ED for evaluation. [place] [address], AST 51, ALT 75, otherwise total bilirubin and alk-phos were normal. Lipase normal. CT scan of the abdomen and pelvis with IV contrast showed cholelithiasis with likely early acute cholecystitis, and a right adnexal cyst and numerous bilateral renal cysts and a few hepatic cysts consistent with autosomal dominant polycystic kidney disease. Right upper quadrant abdominal ultrasound showed cholelithiasis with likely acute cholecystitis. She has been admitted and started on IV metronidazole and ciprofloxacin. Her abdominal pain has improved with analgesics. She denies having any pain at this time. She states that her pain is also associated with heartburn. She is no longer feeling nauseous. No previous abdominal surgeries. Review of Systems 2 Review of Systems: All systems reviewed & are unremarkable except as noted in HPI and below [facility] Past Medical History Medical History Hypertension Polycystic kidney disease Surgical History Surgical History History of D&C Family History Family History Father Kidney polycystic disease Diabetes mellitus Hypertension Atherosclerosis Mother Diabetes mellitus Hypertension Social History Social History Smoking status: Never smoker Alcohol intake: never Substance use: never Substance use type: does not use Do You Feel Safe in your Home?: Yes Lack of Transportation: No Lack of Food: Never True Current Housing: I Have Housing Concerned About Future Housing: No Difficulty Paying Gas/Electric Bills: No Difficulty Paying for Meds: No Currently Unemployed: No Education: Decline to Answer Difficulty w/ Childcare or Family Care: No Spiritual care concerns: No Meds Home Medications and Allergies Home Medications ?Medication ?Instructions ?Recorded ?Confirmed ?Type amlodipine 5 mg tablet 5 mg PO DAILY 03/06/25 03/06/25 History losartan 50 mg tablet 50 mg PO DAILY 03/06/25 03/06/25 History Allergies Allergy/AdvReac Type Severity Reaction Status Date / Time NSAIDS (Non-Steroidal AdvReac Unknown has Verified 03/06/25 10:04 Anti-Inflamma polycystic kidneys, told not to take Vital Signs Vital Signs - 24 hr 03/06/25 03:21 03/06/25 05:30 03/06/25 08:38 Temperature 97.8 F Pulse Rate 91 71 73 Respiratory Rate 18 16 18 Blood Pressure 211/110 H 171/102 H 161/100 H Pulse Oximetry 100 98 99 Oxygen Delivery Room Air 03/06/25 09:34 Temperature 97.8 F Pulse Rate 87 Respiratory Rate 18 Blood Pressure 162/100 H Pulse Oximetry 96 Oxygen Delivery Exam 2 Const: General: comfortable and no acute distress Nutritional Appearance: o verweight Orientation/consciousness: patient oriented x3 HENMT: Head: normocephalic and atraumatic Ears: hearing grossly normal bilaterally Mouth: Yes moist mucous membranes Eyes: General: appearance normal, both eyes and all related structures P upils: Equal, round and reactive pupils present Neck: Neck: normal visual inspection and full ROM Resp: Effort & Inspection: no respiratory distress Auscultation: clear to auscultation bilaterally Cardio: Rate: regular rate Rhythm: regular rhythm Peripheral pulses: P eripheral pulses 2+ throughout GI: Inspection: non-distended and no scars GI Palp: Yes Soft to palpation, Yes Tenderness to palpation present (GI) ( mild epigastric tenderness), No Guarding due to palpation present (GI), Yes No hepatosplenomegaly present and No Rebound tenderness present Auscultation: normal bowel sounds Rectal Exam: deferred Skin: General skin exam: normal color Neuro: General: moves all extremities and no focal motor deficits Speech: n ormal speech Motor exam (neuro): 5/5 motor strength present throughout Extrem: General: normal to inspection and no edema Psych: Mental Status: mental status grossly normal Attitude: cooperative Insight: Good insight present (Psych) Judgement: Good judgement present (Psych) Results Labs 03/06/25 04:42 03/06/25 04:42 Labs: Abnormal lab results 03/06/25 Range/Units 04:42 WBC 10.3 H (4.5-10.0) K/mm3 Plt Count 406 H (150-375) k/mm3 Neut % (Auto) 82.6 H (45.5-73.1) % Lymph % (Auto) 12.9 L (18.3-44.2) % Absolute Neuts (auto) 8.5 H (1.3-6.7) K/mm3 Creatinine 0.59 L (0.7-1.0) mg/dL Glucose 127 H (65-110) mg/dL AST 51 H (14-36) U/L ALT 75 H (6-35) U/L Urine Protein 3+ H (Negative) mg/dL Ur Blood (Man) 2+ H (Negative) Urine RBC 21-50 H (0-2) /hpf Urine WBC 11-20 H (0-3) /hpf Diabetes panel 03/06/25 Range/Units 04:42 Sodium 137 (137-145) mmol/L Potassium 3.4 (3.4-5.0) mmol/L Chloride 102 (98-107) mmol/L Carbon Dioxide 26 (22-30) mmol/L BUN 9 (7-17) mg/dL Creatinine 0.59 L (0.7-1.0) mg/dL Glucose 127 H (65-110) mg/dL Calcium 8.7 (8.4-10.2) mg/dL AST 51 H (14-36) U/L ALT 75 H (6-35) U/L Alkaline Phosphatase 73 (38-126) U/L Total Protein 8.0 (6.3-8.2) g/dL Albumin 4.2 (3.5-5.1) g/dL Calcium panel 03/06/25 Range/Units 04:42 Calcium 8.7 (8.4-10.2) mg/dL Albumin 4.2 (3.5-5.1) g/dL Pituitary panel 03/06/25 Range/Units 04:42 Sodium 137 (137-145) mmol/L Potassium 3.4 (3.4-5.0) mmol/L Chloride 102 (98-107) mmol/L Carbon Dioxide 26 (22-30) mmol/L BUN 9 (7-17) mg/dL Creatinine 0.59 L (0.7-1.0) mg/dL Glucose 127 H (65-110) mg/dL Calcium 8.7 (8.4-10.2) mg/dL Adrenal panel 03/06/25 Range/Units 04:42 Sodium 137 (137-145) mmol/L Potassium 3.4 (3.4-5.0) mmol/L Chloride 102 (98-107) mmol/L Carbon Dioxide 26 (22-30) mmol/L BUN 9 (7-17) mg/dL Creatinine 0.59 L (0.7-1.0) mg/dL Glucose 127 H (65-110) mg/dL Calcium 8.7 (8.4-10.2) mg/dL Total Bilirubin 0.6 (0.2-1.3) mg/dL AST 51 H (14-36) U/L ALT 75 H (6-35) U/L Alkaline Phosphatase 73 (38-126) U/L Total Protein 8.0 (6.3-8.2) g/dL Albumin 4.2 (3.5-5.1) g/dL All other labs normal. Imaging Additional studies: ITS Impressions Abdomen/Pelvis CT 03/06/25 07:58 IMPRESSION: 1. Cholelithiasis with likely early acute cholecystitis. 2. 4.9 cm right adnexal cyst. 3. Numerous bilateral renal cysts and a few hepatic cysts consistent with autosomal dominant polycystic kidney disease. Abdomen Ultrasound 03/06/25 08:02 IMPRESSION: 1. Cholelithiasis with likely acute cholecystitis.
[2025-03-06 14:00] VITALS: BP 164/92; PULSE 65; RESP 18; TEMP 36.6; O2SAT 99
[2025-03-06] MEDS: amLODIPine BESYLATE 5 MG TABLET PO (15:23)
[2025-03-06] MEDS: LOSARTAN POTASSIUM 50 MG TABLET PO (15:24)
[2025-03-06 20:05] VITALS: BP 150/89; PULSE 73; RESP 16; TEMP 36.8; O2SAT 100
[2025-03-07] VITALS (15 sets, daily range): BP systolic 138–188; BP diastolic 89–109; PULSE 72–101; RESP 12–20; TEMP 35.8–36.9; O2SAT 96–100
[2025-03-07] MEDS: metroNIDAZOLE 500 MG/ISO 100ML 500 MG/100 ML BAG 100 MG IVPB ×3 (00:01→18:20)
--- NOTE | 2025-03-07 06:52 | P.PNIM_ITS ---
Progress Note: A&P Assessment and Plan (1) Cholelithiasis with acute cholecystitis: Code(s): K80.00 - Calculus of gallbladder with acute cholecystitis without obstruction Status: Acute Assessment and Plan: Abdomen/pelvis CT showed cholelithiasis with likely early acute cholecystitis - Gentle IV fluid resuscitation - Antibiotics: Cipro and Flagyl started 03/06 - Diet:NPO - Monitor vital signs, I and O's, check stool output, neuro status and patient is a fall risk - Monitor serum electrolytes and CBC - Monitor lactic acid - Surgery consulted, appreciate recommendations Plan for laparoscopic cholecystectomy today with Dr. Bassett (2) Hypertension: Code(s): I10 - Essential (primary) hypertension Status: Chronic Assessment and Plan: Chronic, continue home medications - amlodipine 5 mg daily - losartan 50 mg daily - blood pressures remain stable, continue to monitor (3) ADPKD (autosomal dominant polycystic kidney disease): Code(s): Q61.2 - Polycystic kidney, adult type Status: Acute Assessment and Plan: Abdomen/pelvis CT showed numerous bilateral renal cysts and a few hepatic cysts consistent with autosomal dominant polycystic kidney disease Followed by [facility] Dr. Dawson Time Spent With Patient Time with patient: 25 - 35 minutes Subjective Date/time seen: 03/07/25 06:52 Interval history: 29 year old female with past medical history of polycystic kidney disease and hypertension presents to the hospital for abdominal pain. Patient is pleasant lying comfortably in bed. She states that pain is well controlled at time of assessment. She has no complaints denying chest pain, shortness of breath, palpitations, nausea/vomiting. Plan for cholecystectomy today. Review of Systems Review of Systems: All systems reviewed & are unremarkable except as noted in HPI and below Exam Narrative: AF HR 75 RR 16 SpO2 100 BP 154/89 General: female in no acute respiratory distress who is nontoxic appearing, lying semi recumbent in bed. HEENT: Normocephalic. Atraumatic. Extraocular movement intact. Sclera clear and anicteric. No facial asymmetry. Chest: Lungs are clear to auscultation bilaterally. No wheezes or crackles. CV: Heart was regular rate and rhythm. S1-S2. No murmurs, gallops, or rubs. Abd: Abdomen was soft. RUQ pain. Nondistended. Positive bowel sounds. Neuro: Patient is alert and oriented x4. Speech is clear. Objective Data Vital Signs Vital Signs: Vital Signs - 24 hr 03/06/25 08:38 03/06/25 09:34 03/06/25 14:00 Temperature 97.8 F 97.8 F Pulse Rate 73 87 65 Respiratory Rate 18 18 18 Blood Pressure 161/100 H 162/100 H 164/92 H Pulse Oximetry 99 96 99 03/06/25 20:05 03/07/25 05:10 Temperature 98.2 F 96.5 F L Pulse Rate 73 72 Respiratory Rate 16 18 Blood Pressure 150/89 H 155/89 H Pulse Oximetry 100 100 Intake/Output Intake/Output: Intake & Output 03/04/25 03/05/25 03/06/25 03/07/25 23:59 23:59 23:59 23:59 Intake Total 1520 1636 Balance 1520 1636 Meds/Results Medications: Active Medications Generic Name Dose Route Start Last Admin Trade Name Freq PRN Reason Stop Dose Admin Amlodipine Besylate 5 mg 03/07/25 09:00 Amlodipine Besylate 5 Mg Tablet PO DAILY COUNT INCLUDES THE [facility] Enoxaparin Sodium 40 mg 03/07/25 09:00 Enoxaparin 40 Mg/0.4 Ml Syringe SUB-Q DAILY HUGH Hydralazine HCl 10 mg 03/06/25 12:33 Hydralazine Hcl 20 Mg/Ml Vial IV PUSH Q4H PRN Blood Pressure - High Metronidazole 500 mg in 100 mls @ 100 mls/hr 03/06/25 08:45 03/07/25 00:01 Flagyl 500 Mg/Iso Soln 100 Ml IVPB 100 mls/hr Q8H HUGH Administration Ciprofloxacin/Dextrose 200 mls @ 200 mls/hr 03/06/25 08:20 03/06/25 22:01 Cipro 400 Mg/D5w 200 Ml IVPB 200 mls/hr Q12H HUGH Administration Lactated Ringer's 1,000 mls @ 125 mls/hr 03/06/25 08:30 03/06/25 19:00 Lr - Lactated Ringers Iv IV CONT 125 mls/hr .Q8H HUGH Administration Losartan Potassium 50 mg 03/07/25 09:00 Losartan Potassium 50 Mg Tablet PO DAILY HUGH Morphine Sulfate 4 mg 03/06/25 08:27 Morphine Sulfate (*Crx) 4 Mg/Ml Inj IV PUSH Q2H PRN Pain Rated 7-10 Ondansetron HCl 4 mg 03/06/25 08:27 03/06/25 09:24 Ondansetron Inj 4 Mg/2 Ml Vial IV PUSH 4 mg Q4H PRN Administration Nausea Radiology Results: ITS Impressions Abdomen/Pelvis CT 03/06/25 07:58 IMPRESSION: 1. Cholelithiasis with likely early acute cholecystitis. 2. 4.9 cm right adnexal cyst. 3. Numerous bilateral renal cysts and a few hepatic cysts consistent with autosomal dominant polycystic kidney disease. Abdomen Ultrasound 03/06/25 08:02 IMPRESSION: 1. Cholelithiasis with likely acute cholecystitis. Quality VTE Prophylaxis VTE prophylaxis: pharmacologic ordered
[2025-03-07 07:28] LABS: Hematocrit 36.3 % (37.0-47.0); Hemoglobin 11.7 g/dL (12.0-15.0); Mean Corpuscular HGB Conc 32.2 g/dl (32-36); Mean Corpuscular Hemoglobin 26.8 pg (26-34); Mean Corpuscular Volume 83.3 fl (80-100); Mean Platelet Volume 9.8 fl (7.4-10.4); Platelet Count Result 357 k/mm3 (150-375); Red Blood Count 4.36 M/mm3 (4.2-5.4); Red Cell Distribution Width 13.2 % (11.5-14.5); White Blood Count 7.4 K/mm3 (4.5-10.0)
[2025-03-07 07:38] LABS: Alanine Aminotransferase 55 U/L (6-35); Albumin Level 3.5 g/dL (3.5-5.1); Alkaline Phosphatase 60 U/L (38-126); Anion Gap 4 mmol/L (4-12); Aspartate Amino Transferase 31 U/L (14-36); Bilirubin,Total 0.7 mg/dL (0.2-1.3); Blood Urea Nitrogen 7 mg/dL (7-17); Calcium 8.4 mg/dL (8.4-10.2); Carbon Dioxide 29 mmol/L (22-30); Chloride 105 mmol/L (98-107); Estimated CRCL calculation 128 ml/min; Estimated Glomerular Filt Rate > 60; Glucose 115 mg/dL (65-110); Potassium 3.4 mmol/L (3.4-5.0); Sodium 138 mmol/L (137-145)
[2025-03-07 09:04] LABS: Prothrombin Time 14.2 Seconds (11.1-14.7)
[2025-03-07 09:05] LABS: Partial Thromboplastin Time 26.6 Seconds (22.3-36.8)
[2025-03-07] MEDS: amLODIPine BESYLATE 5 MG TABLET PO (09:10)
[2025-03-07] MEDS: LOSARTAN POTASSIUM 50 MG TABLET PO (09:10)
[2025-03-07] MEDS: CIPROFLOXACIN 400 MG/D5W 200ML 200 ML 200 MG IVPB (09:28)
[2025-03-07] MEDS: KCL 20 MEQ/SW 100 ML 100 ML 50 MEQ IVPB (11:45)
--- NOTE | 2025-03-07 13:04 | WPDHPUPDATE1 ---
History and Physical Update Update Date/Time: 03/07/25 13:04 History and Physical has been reviewed, including an updated exam of the patient. There are NO changes in the patient's condition. Risks, benefits, and alternatives have been discussed and questions answered. Patient agrees to proceed with procedure.
[2025-03-07] MEDS: LACTATED RINGERS 1,000 ML 30 ML IV CONT ×2 (14:00→16:39)
[2025-03-07] MEDS: ACETAMINOPHEN 500 MG TABLET 1000 MG PO (14:10)
--- NOTE | 2025-03-07 15:11 | P.PNAN_ITS ---
Anes - Initial Pre Proc Eval Procedure: Operation Date: 03/07/25 15:00 Proposed Procedures p Laparoscopic Cholecystectomy - Arminda Bassett MD Date/Time: 03/07/25 15:11 Surgeon: Terri Bonner PA-C Pre Op Diagnosis: Cholelithiasis with early acute cholecystitis; Patient Data Age: 29 Gender: F Height: 1.68 m Weight: 111.1 kg Last Vital Signs Temp 36.4 C 03/07/25 14:00 Pulse 75 03/07/25 14:00 Resp 16 03/07/25 14:00 BP 154/89 H 03/07/25 14:00 Pulse Ox 100 03/07/25 14:00 O2 Del Method Room Air 03/06/25 03:21 Allergies Allergy/AdvReac Type Severity Reaction Status Date / Time NSAIDS (Non-Steroidal AdvReac Unknown has Verified 03/06/25 10:04 Anti-Inflamma polycystic kidneys, told not to take Home Medications ?Medication ?Instructions ?Recorded ?Confirmed ?Type amlodipine 5 mg tablet 5 mg PO DAILY 03/06/25 03/06/25 History losartan 50 mg tablet 50 mg PO DAILY 03/06/25 03/06/25 History Laboratory Tests 03/07/25 03/07/25 07:23 08:42 WBC 7.4 K/mm3 (4.5-10.0) RBC 4.36 M/mm3 (4.2-5.4) Hgb 11.7 L g/dL (12.0-15.0) Hct 36.3 L % (37.0-47.0) MCV 83.3 fl (80-100) MCH 26.8 pg (26-34) MCHC 32.2 g/dl (32-36) RDW 13.2 % (11.5-14.5) Plt Count 357 k/mm3 (150-375) MPV 9.8 fl (7.4-10.4) PT 14.2 Seconds (11.1-14.7) INR 1.0 APTT 26.6 Seconds (22.3-36.8) Sodium 138 mmol/L (137-145) Potassium 3.4 mmol/L (3.4-5.0) Chloride 105 mmol/L (98-107) Carbon Dioxide 29 mmol/L (22-30) Anion Gap 4 mmol/L (4-12) BUN 7 mg/dL (7-17) Creatinine 0.69 L mg/dL (0.7-1.0) Estim Creat Clear Calc 128 ml/min Estimated GFR > 60 (59 - ) Glucose 115 H mg/dL (65-110) Calcium 8.4 mg/dL (8.4-10.2) Total Bilirubin 0.7 mg/dL (0.2-1.3) AST 31 U/L (14-36) ALT 55 H U/L (6-35) Alkaline Phosphatase 60 U/L (38-126) Total Protein 7.0 g/dL (6.3-8.2) Albumin 3.5 g/dL (3.5-5.1) Blood Type B Positive Antibody Screen Negative Patient hx anesthesia problems: none Family hx anesthesia problems: none Results Review: All pre-operative results and documents have been reviewed as part of the pre- operative evaluation. [facility] Past Medical History Medical History Hypertension Polycystic kidney disease Surgical History Surgical History History of D&C Family History Family History Father Kidney polycystic disease Diabetes mellitus Hypertension Atherosclerosis Mother Diabetes mellitus Hypertension Social History Social History Smoking status: Never smoker Alcohol intake: never Substance use: never Substance use type: does not use Do You Feel Safe in your Home?: Yes Lack of Transportation: No Lack of Food: Never True Current Housing: I Have Housing Concerned About Future Housing: No Difficulty Paying Gas/Electric Bills: No Difficulty Paying for Meds: No Currently Unemployed: No Education: Decline to Answer Difficulty w/ Childcare or Family Care: No Spiritual care concerns: No Anes - Eval Final PreProcedure Day of Procedure 03/07/25 15:11 Patient weight: obese Heart: regular rate and rhythm Lungs: clear to auscultation Airway: Mallampati scale class II Neurological: alert and oriented Last oral intake: >/= 8 hours ASA classification: III Emergent: no Anesthetic plan: proceed Anesthesia type and monitoring: general ETT and standard monitoring Results Review: All pre-operative results and documents have been reviewed as part of the pre- operative evaluation. Informed Consent: The patient's anesthetic plan and its attendant risks and benefits were discussed with the patient/family/POA. Questions were solicited and answers provided to the satisfaction of the patient/family/POA.
[2025-03-07] MEDS: BUPIVACAINE/EPINEPHRINE 0.5% 30 ML VIAL INFILTRATE (16:05)
--- NOTE | 2025-03-07 16:39 | P.OP_ITS ---
Procedure Note - Detailed Date of Procedure 03/07/25 Pre-op Diagnosis Acute cholecystitis, cholelithiasis Post-op Diagnosis Same Procedure Performed Laparoscopic cholecystectomy Surgeon Arminda Bassett MD Anesthesia General Indications 29-year-old female presenting to the emergency department with acute cholecy stitis, cholelithiasis Findings moderate cholecystitis, cholelithiasis Description of Procedure The patient was taken to the operating room placed in the supine position. After adequate induction of general anesthesia, the patient was prepped and draped in normal sterile fashion. A time-out was then performed to verify the patient's identity as well as the procedure being performed. I then made a 5 mm incision in the infraumbilical region. Through this, a Veress needle was placed into the peritoneal cavity and CO2 gas was then insufflated. After adequate pneumoperitoneum was achieved, the Veress needle was removed and a 5 mm optiview trocar was placed through this incision under direct visualization. I then placed the laparoscope through this trocar site and under direct visualization placed a further 12 mm subxiphoid port as well as 2 additional 5 mm ports in the right upper abdomen. The gallbladder was then identified and was noted to be moderately inflamed, distended, and full of gallstones. I was able to place a grasper at the dome of the gallbladder and this was retracted anterior and cephalad up over the liver. A 2nd retractor was then placed at the infundibulum and retracted laterally, this allowed visualization of the triangle of Calot. I then was able to visualize the cystic duct in its entirety from its proximal insertion into the gallbladder, to its distal junction with the common hepatic/common bile duct junction. At this point, I carefully skeletonized the proximal cystic duct with the [place] dissector. I then clipped and transected the proximal cystic duct. Next I visualized the cystic artery. Again the artery was skeletonized, clipped, and transected. I then used the Bovie cautery to take down the peritoneal attachments of the gallbladder off the liver bed. This was somewhat difficult given the amount of inflammation in the posterior s pace. Once the gallbladder specimen was completely detached, an endo-pouch was placed through the 12 mm port site. I then placed the gallbladder specimen into the Endo pouch and removed the endo-pouch from the 12 mm port site. The specimen will now be sent to pathology for further review. I then copiously irrigated the right upper quadrant. Some mild oozing was noted in the liver bed and this was controlled with the bovie cautery. Hemostasis was noted in the liver bed, the clips were noted to be in good position on both the cystic duct stump and the cystic artery stump. No other pathology was noted in the right upper quadrant. I then moved the laparoscope to the subxiphoid port. No iatrogenic injury or other pathology was noted in the lower abdomen. I then closed the 12 mm trocar site under direct visualization using the Xu cone and 0 Vicryl suture. At this point, the abdomen was desufflated and all ports removed. All port sites were then closed with 4.O Monocryl subcuticular sutures. Dermabond was placed on each incision. The patient tolerated the procedure well, was extubated in the operating room postoperative and will be transferred to the recovery room in stable condition Estimated Blood Loss 20 Drains No Packing No Pathology Yes Complications No immediate complications Condition Stable Disposition PACU [facility] Billing Surgery - Charge Forward: Surgery Billing
[2025-03-07] MEDS: fentaNYL CITRATE INJ (*CRX) 100 MCG/2 ML VIAL 25 MCG IV PUSH ×7 (16:50→17:41)
[2025-03-07] MEDS: ONDANSETRON INJ 4 MG/2 ML VIAL IV PUSH (17:19)
[2025-03-07] MEDS: hydrALAZINE HCL 20 MG/ML VIAL IV PUSH (17:22)
[2025-03-07] MEDS: SCOPOLAMINE 1 MG PATCH 1 PATCH TRANSDERM (17:55)
[2025-03-07] MEDS: diphenhydrAMINE HCl INJ 50 MG/ML VIAL 25 MG IV PUSH (17:55)
[2025-03-07] MEDS: HYDROmorphone HCL INJ (*CRX) 2 MG/ML VIAL 0.25 MG IV PUSH (18:16)
[2025-03-07] MEDS: MORPHINE SULFATE (*CRX) 4 MG/ML INJ IV PUSH (18:54)
[2025-03-07] MEDS: LACTATED RINGERS 1,000 ML 125 ML IV CONT (20:58)
[2025-03-08] VITALS: BP 153/95; PULSE 99; RESP 18; TEMP 35.9; O2SAT 99
[2025-03-08 04:00] VITALS: BP 153/95; PULSE 99; RESP 18; TEMP 35.9; O2SAT 99
[2025-03-08] MEDS: LACTATED RINGERS 1,000 ML 125 ML IV CONT (04:46)
[2025-03-08] MEDS: HYDROcodone/acetaminophen (*CRX) 5-325 MG TABLET 1 TAB PO (05:37)
[2025-03-08 05:43] LABS: Hematocrit 37.8 % (37.0-47.0); Hemoglobin 12.9 g/dL (12.0-15.0); Mean Corpuscular HGB Conc 34.1 g/dl (32-36); Mean Corpuscular Hemoglobin 27.2 pg (26-34); Mean Corpuscular Volume 79.6 fl (80-100); Mean Platelet Volume 9.5 fl (7.4-10.4); Platelet Count Result 438 k/mm3 (150-375); Red Blood Count 4.75 M/mm3 (4.2-5.4); Red Cell Distribution Width 13.2 % (11.5-14.5); White Blood Count 11.9 K/mm3 (4.5-10.0)
[2025-03-08 05:57] LABS: Alanine Aminotransferase 65 U/L (6-35); Albumin Level 4.1 g/dL (3.5-5.1); Alkaline Phosphatase 65 U/L (38-126); Anion Gap 9 mmol/L (4-12); Aspartate Amino Transferase 41 U/L (14-36); Bilirubin,Total 0.9 mg/dL (0.2-1.3); Blood Urea Nitrogen 7 mg/dL (7-17); Calcium 8.8 mg/dL (8.4-10.2); Carbon Dioxide 27 mmol/L (22-30); Chloride 101 mmol/L (98-107); Estimated CRCL calculation 136 ml/min; Estimated Glomerular Filt Rate > 60; Glucose 115 mg/dL (65-110); Potassium 3.6 mmol/L (3.4-5.0); Sodium 137 mmol/L (137-145)
[2025-03-08 06:18] VITALS: BP 172/96; PULSE 99; RESP 18; TEMP 36.6; O2SAT 95
[2025-03-08 08:00] VITALS: BP 148/91; PULSE 100; RESP 14; TEMP 37; O2SAT 100
[2025-03-08] MEDS: amLODIPine BESYLATE 5 MG TABLET PO (09:21)
[2025-03-08] MEDS: ENOXAPARIN 40 MG/0.4 ML SYRINGE SUB-Q (09:21)
[2025-03-08] MEDS: LOSARTAN POTASSIUM 50 MG TABLET PO (09:21)
--- NOTE | 2025-03-08 10:34 | PM.PNGS ---
Progress Note: A&P Assessment and Plan (1) Cholelithiasis with acute cholecystitis: Code(s): K80.00 - Calculus of gallbladder with acute cholecystitis without obstruction Status: Acute Assessment and Plan: doing well, cont routine postop care, ADAT, home soon Subjective Subjective Date/Time Seen: 03/08/25 10:34 Interval history: feels good, bryant clears s issue, mild incisional pain Review of Systems Review of Systems: All systems reviewed & are unremarkable except as noted in HPI and below Exam Const: General: cooperative, comfortable and no acute distress Resp: Auscultation: clear to auscultation bilaterally Cardio: Rate: regular rate Rhythm: regular rhythm GI: Inspection: normal to inspection, distended and incision GI Palp: Yes abdominal tenderness Objective Data Vital Signs Vital Signs: Vital Signs - 24 hr 03/07/25 14:00 03/07/25 16:39 03/07/25 16:45 Temperature 36.4 C 36.7 C Pulse Rate 75 88 74 Respiratory Rate 16 16 20 Blood Pressure 154/89 H 151/99 H 178/99 H Pulse Oximetry 100 99 100 Oxygen Delivery Simple Face Mask Room Air Oxygen Flow Rate 8 03/07/25 17:00 03/07/25 17:15 03/07/25 17:30 Temperature Pulse Rate 74 79 93 Respiratory Rate 16 13 20 Blood Pressure 182/105 H 188/103 H 173/109 H Pulse Oximetry 96 97 98 Oxygen Delivery Room Air Room Air Room Air Oxygen Flow Rate 03/07/25 17:45 03/07/25 18:00 03/07/25 18:15 Temperature Pulse Rate 84 93 96 Respiratory Rate 16 16 20 Blood Pressure 167/100 H 168/100 H 148/90 H Pulse Oximetry 98 99 100 Oxygen Delivery Room Air Room Air Room Air Oxygen Flow Rate 03/07/25 18:27 03/07/25 19:02 03/07/25 20:00 Temperature 36.7 C 36.9 C Pulse Rate 94 97 99 Respiratory Rate 12 16 16 Blood Pressure 150/92 H 153/99 H 150/96 H Pulse Oximetry 100 99 99 Oxygen Delivery Room Air Oxygen Flow Rate 03/07/25 20:00 03/07/25 20:30 03/07/25 21:00 Temperature 36.8 C 36.6 C Pulse Rate 99 101 H Respiratory Rate 16 16 Blood Pressure 145/93 H 138/93 H Pulse Oximetry 99 100 Oxygen Delivery Room Air Oxygen Flow Rate 03/08/25 00:00 03/08/25 04:00 03/08/25 06:18 Temperature 35.9 C L 35.9 C L 36.6 C Pulse Rate 99 99 99 Respiratory Rate 18 18 18 Blood Pressure 153/95 H 153/95 H 172/96 H Pulse Oximetry 99 99 95 Oxygen Delivery Oxygen Flow Rate 03/08/25 08:00 Temperature 37.0 C Pulse Rate 100 Respiratory Rate 14 Blood Pressure 148/91 H Pulse Oximetry 100 Oxygen Delivery Oxygen Flow Rate Intake/Output Intake/Output: Intake & Output 03/05/25 03/06/25 03/07/25 03/08/25 23:59 23:59 23:59 23:59 Intake Total 1720 4986 1525 Balance 1720 4986 1525 Meds/Results Medications: Active Medications Generic Name Dose Route Start Last Admin Trade Name Freq PRN Reason Stop Dose Admin Hydrocodone Bitart/Acetaminophen 1 tab 03/07/25 18:31 03/08/25 05:37 Hydrocodone/Acetaminophen (*Crx) 5-325 Mg Tablet PO 1 tab Q4H PRN Administration Pain Rated 4-6 Amlodipine Besylate 5 mg 03/07/25 09:00 03/08/25 09:21 Amlodipine Besylate 5 Mg Tablet PO 5 mg DAILY HUGH Administration Enoxaparin Sodium 40 mg 03/07/25 09:00 03/08/25 09:21 Enoxaparin 40 Mg/0.4 Ml Syringe SUB-Q 40 mg DAILY HUGH Administration Hydralazine HCl 10 mg 03/06/25 12:33 Hydralazine Hcl 20 Mg/Ml Vial IV PUSH Q4H PRN Blood Pressure - High Lactated Ringer's 1,000 mls @ 125 mls/hr 03/06/25 08:30 03/08/25 04:46 Lr - Lactated Ringers Iv IV CONT 125 mls/hr .Q8H HUGH Administration Losartan Potassium 50 mg 03/07/25 09:00 03/08/25 09:26 Losartan Potassium 50 Mg Tablet PO Not Given DAILY HUGH Losartan Potassium 50 mg 03/08/25 09:00 03/08/25 09:21 Losartan Potassium 50 Mg Tablet PO 50 mg DAILY HUGH Administration Morphine Sulfate 4 mg 03/06/25 08:27 03/07/25 18:54 Morphine Sulfate (*Crx) 4 Mg/Ml Inj IV PUSH 4 mg Q2H PRN Administration Pain Rated 7-10 Ondansetron HCl 4 mg 03/06/25 08:27 03/07/25 17:19 Ondansetron Inj 4 Mg/2 Ml Vial IV PUSH 4 mg Q4H PRN Administration Nausea Radiology Results: ITS Impressions Abdomen/Pelvis CT 03/06/25 07:58 IMPRESSION: 1. Cholelithiasis with likely early acute cholecystitis. 2. 4.9 cm right adnexal cyst. 3. Numerous bilateral renal cysts and a few hepatic cysts consistent with autosomal dominant polycystic kidney disease. Abdomen Ultrasound 03/06/25 08:02 IMPRESSION: 1. Cholelithiasis with likely acute cholecystitis. Labs Labs: Laboratory Results - last 24 hr 03/08/25 05:36 WBC 11.9 H RBC 4.75 Hgb 12.9 Hct 37.8 MCV 79.6 L MCH 27.2 MCHC 34.1 RDW 13.2 Plt Count 438 H MPV 9.5 Sodium 137 Potassium 3.6 Chloride 101 Carbon Dioxide 27 Anion Gap 9 BUN 7 Creatinine 0.65 L Estim Creat Clear Calc 136 Estimated GFR > 60 Glucose 115 H Calcium 8.8 Total Bilirubin 0.9 AST 41 H ALT 65 H Alkaline Phosphatase 65 Total Protein 8.0 Albumin 4.1
--- NOTE | 2025-03-08 11:30 | P.DS_ITS ---
DS: Admitting Diagnosis Discharge Date 03/08 Admitting Diagnosis abd pain DS: Discharge Diagnosis Discharge Diagnosis (1) Cholelithiasis with acute cholecystitis: Code(s): K80.00 - Calculus of gallbladder with acute cholecystitis without obstruction Status: Acute (2) Hypertension: Code(s): I10 - Essential (primary) hypertension Status: Chronic (3) ADPKD (autosomal dominant polycystic kidney disease): Code(s): Q61.2 - Polycystic kidney, adult type Status: Acute DS: Summary Hospital Course Hospital Course: 29 year old female with past medical history of polycystic kidney disease and hypertension presents to the hospital for abdominal pain. CT AP showed cholelithiasis with possible acute cholecystitis and 4.9cm right adnexal mass, numerous bilateral renal cysts and a few hepatic cysts consistent with ADPCKD. US Abd showed cholelithiasis with likely acute cholecystitis. Received Cipro/flagyl Had Laparoscopic cholecystectomy on 03/[address] Costa. Pt is alert, no pain, no n/v/d. Stable for discharge. Pain, antibiotic mngmt if indicated and discharge instructions and f/u per surgical team. Status at Discharge Functional status at discharge: independent ambulation Overall status at discharge: patient is back to baseline Time Spent with Patient Time attestation: Total time spent providing and/or coordinating discharge services: Time spent: Less than 30 minutes Exam Narrative: General: female in no acute respiratory distress who is nontoxic appearing, lying semi recumbent in bed. HEENT: Normocephalic. Atraumatic. Extraocular movement intact. Sclera clear and anicteric. No facial asymmetry. Chest: Lungs are clear to auscultation bilaterally. No wheezes or crackles. CV: Heart was regular rate and rhythm. S1-S2. No murmurs, gallops, or rubs. Abd: Abdomen was soft. RUQ pain. Nondistended. Positive bowel sounds. Neuro: Patient is alert and oriented x4. Speech is clear. Const: General: comfortable DS: Data Data Completed and Pending Pending studies at discharge: Pending at discharge 03/07/25 16:21 Surgical [PTH] Routine Labs on day of discharge: Labs from last 24 hours 03/08/25 05:36 WBC 11.9 H RBC 4.75 Hgb 12.9 Hct 37.8 MCV 79.6 L MCH 27.2 MCHC 34.1 RDW 13.2 Plt Count 438 H MPV 9.5 Sodium 137 Potassium 3.6 Chloride 101 Carbon Dioxide 27 Anion Gap 9 BUN 7 Creatinine 0.65 L Estim Creat Clear Calc 136 Estimated GFR > 60 Glucose 115 H Calcium 8.8 Total Bilirubin 0.9 AST 41 H ALT 65 H Alkaline Phosphatase 65 Total Protein 8.0 Albumin 4.1 Discharge Plan Discharge Attending physician on discharge: Ole Soni Consulting providers: Arminda Snowden Discharging Clinician: Rach Rico Patient Disposition: Home Activity: as tolerated Diet: as tolerated Wound Care Instructions: incision open to air Discharge Instructions: DISCHARGE INSTRUCTION SHEET FOR HERNIA, GALLBLADDER AND APPENDIX SURGERIES DR. SNOWDEN 1. May shower in 24 hours, no soaking in bath x 2weeks. 2. Call office for: * Wound increasingly painful or bleeding * Vomiting * Fever of greater than 101 degrees 3. If no bowel movement for three days, take 1 oz. (30 ml) Milk of Magnesia or MiraLax 17g 1 to 2 times daily. 4. No heavy lifting > 10-15 pounds x 6 weeks for hernia repairs and 2 weeks for laparoscopic cholecystectomy or appendectomy. 5. No driving for 3 days or while taking narcotic pain medications. 6. Ice to surgical site for 48 hours (30 min on, then 30 min off). 7. Up walking 10-30 minutes three times per day. 8. Resume previous home medications. 9. Follow-up 10-14 days in office for wound check or as previously scheduled. ([phone]) 10. Oral pain medications prescription to be sent to pharmacy. Take Tylenol 500mg every 6 hours and Ibuprofen 600mg every 6 hours for the first 2 days, then as needed. 11. NUTRITION: Start out by drinking fluids and increase your diet as tolerated. If you experience nausea, try dry toast, crackers, and 7-UP. If nausea or vomiting persists, contact your surgeon?s office. 12. Gallbladders-Low Fat Diet for 2 weeks (send care note of low fat diet) 13. Inguinal Hernias-wear scrotal support for 48 hours 14. Abdominal Hernias-if sent home with abdominal binder, wear for the first 2 weeks (may remove to shower or at night to sleep). Revised 10/2020 Patient Instructions: Antibiotic Form Patient Language: Albanian Stand Alone Forms: General Discharge Information Follow-up/Referrals: Arminda Snowden MD [Physician] - 2 Weeks Discharge Medications: New hydrocodone-acetaminophen 5-325 mg tablet 1 tablet PO Q6H PRN (Reason: pain) Qty: 20 0RF Continued amlodipine 5 mg tablet 5 mg PO DAILY losartan 50 mg tablet 50 mg PO DAILY Date of admission: 03/06/25 08:54 Primary Care Provider: CurtGriffin Admitting Provider: Myah Gary Attending physician on admission: Terri Bonner Condition: Stable Quality VTE Prophylaxis VTE prophylaxis: pharmacologic ordered Hospitalist MIPS Heart Failure (Exclusion) Patient has history of Heart Transplant or Left Ventricular Assistive Device?: No IF YES, STOP HERE Heart Failure (Qualifier) Patient has current or prior documentation of LVEF less than or equal to 40%, or mod/servere depressed LVSF?: No IF NO, STOP HERE
== END 2025-03-08 12:30 | disposition home or self-care (01) ==
LOC: ANHED 07:14 → ANH3MEDSUR 15:19
PROVIDERS: Emergency Medicine; Nurse Practitioner Family; Student in an Organized Health Care Education/Training Program; Surgery; Admitting Provider Internal Medicine; Emergency Provider Student in an Organized Health Care Education/Training Program; PCP Family Medicine; Visit Provider Nurse Practitioner
PROC: 0FT44ZZ Resection of Gallbladder, Percutaneous Endoscopic Approach (ICD-10-PCS; CPT 47562; principal; 2025-03-07 15:00)
DX: K80.00 Calculus of gallbladder with acute cholecystitis without obstruction (principal); I10 Essential (primary) hypertension; Q61.2 Polycystic kidney, adult type; N94.89 Other specified conditions associated with female genital organs and menstrual cycle; E66.9 Obesity, unspecified; Z68.39 Body mass index [BMI] 39.0-39.9, adult; Z79.899 Other long term (current) drug therapy; Z88.8 Allergy status to other drugs, medicaments and biological substances
CPT/HCPCS: 47562; 36415; 74177; 76705; 80053; 81001; 81025; 83690; 85025; 85027; 85610; 85730; 86850; 86900; 86901; 87086; 88304; 96365; 96374; 96375; 96376; 99285; A9270; G0378; J0360; J0744; J1100; J1171; J1200; J1650; J1836; J2003; J2250; J2270; J2405; J2704; J3010; J3480; J7120; Q9967